=== PATIENT | male | born 1955 | race Two or more races ===

== ENCOUNTER 2024-02-19 10:32 | Outpatient (AMB) | payer MEDICARE, SELFPAY ==
--- NOTE | 2024-02-19 10:47 | HO.NEPHOV_ITS ---
Vital Signs 02/19/24 10:50 Height 5 ft 11 in Weight 236 lb BMI 32.9 BP 122/80 Blood Pressure Location Lt brachial Position Sitting Pulse 54 Pulse Source Pulse Oximeter Pulse Oximetry (%) 97 Oxygen Delivery Method Room Air Intake Visit Reasons: Previous patient/ Confirmed Information Security Specialist Required: No Accompanied by: Self / Same As Patient Allergies No Known Allergies Allergy (Verified 02/19/24 10:53) HPI Comments Details: Brent has history of nephrolithiasis. He was seen in follow-up for his nephrocalcinosis. He had seen Urology in the past. Stone analysis had shown calcium oxalate. His dad had renal calculi. As per the patient, last imaging study did not show any stones but some other medical provider mentioned that he continues to renal calculi about which he is confused. He has lost tremendous amount of weight by lifestyle modifications. 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 He is not on any anticoagulation since he had watchman device placement. He does not have any urinary symptoms, flank pain, dizziness. His blood pressure has been at goal. He feels well. 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 Surgical History History of carpal tunnel release History of shoulder surgery History of knee replacement Family History Paternal Grandmother Heart disease Social History (Updated 02/19/24 @ 10:58 by Maribel Ramires MA) Alcohol intake: never Patient Tobacco Use Status: Never used Tobacco Review of Systems Const All systems reviewed & are unremarkable except as noted in HPI and below Physical Exam Vital Signs: Last Vital Signs Pulse 54 02/19/24 10:50 BP 122/80 02/19/24 10:50 Pulse Ox 97 02/19/24 10:50 Oxygen Delivery Method Room Air 02/19/24 10:50 BMI result Body Mass Index 32.9 Const General: comfortable and no acute distress Orientation/consciousness: patient oriented x3 HEENT Head: Yes normocephalic Mouth: Normal oral and palatal mucosa present Eyes EOM: EOMs intact bilaterally Neck Neck: Yes supple Resp Auscultation: clear to auscultation bilaterally Cardio Jugular venous distension: no JVD Rate: regular rate GI Palpation (GI): Soft to palpation Auscultation: normal bowel sounds General: Yes no CVA tenderness Back/Spine/Pelvis Back: no CVA tenderness Skin General skin exam: no rashes or lesions noted Neuro General: patient oriented x3 and moves all extremities Extrem General: Yes no pedal edema Results Reviewed Nephrology Results: No Data to Display Assessment & Plan Assessment & Plan (1) Kidney stones: Code(s): N20.0 - Calculus of kidney Category: Medical Plan 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 His renal functions has been normal. 24 hour urine by [employer] in April 2023 showed high uric acid levels in the urine but had normal serum uric acid. He is on hydrochlorothiazide 12.5 mg daily. He maintains good hydration. He does not consume excess sodium in the diet. He eats less meat but more fruits and vegetables. I have ordered a renal ultrasound for follow-up. I shall do a 24 hour urine along with serum uric acid, electrolytes and renal function after next visit. All questions answered. Orders: Orders US renal BI Today N20.0 - Calculus of kidney Coding Level of Care Code Est Pt Level 4 (64324) Diagnoses Kidney stones N20.0
[2024-02-19 10:50] VITALS: BP 122/80; PULSE 54; O2SAT 97; BMI 32.9
== END 2024-02-19 11:27 | disposition home or self-care (01) ==
PROVIDERS: PCP Internal Medicine; Visit Provider Internal Medicine Nephrology
DX: N20.0 Calculus of kidney (principal)
CPT/HCPCS: 99214

== ENCOUNTER → 2024-02-19 10:32 | Outpatient (BNVA) | payer MEDICARE, SELFPAY | PROVIDERS: PCP Internal Medicine; Visit Provider Internal Medicine Nephrology | DX: N20.0 Calculus of kidney (principal) | CPT/HCPCS: 99212 ==

== ENCOUNTER 2024-02-26 14:37 | Outpatient (REF) | payer MEDICARE, SELFPAY ==
--- NOTE | ~2024-02-26 | US_ITS ---
EXAMINATION: US RETROPERITONEAL LIMITED (RENAL ONLY) CLINICAL INFORMATION: Renal stone. COMPARISON: None available. TECHNIQUE: Grayscale and Doppler images of the retroperitoneum/kidneys were obtained. FINDINGS: RIGHT KIDNEY: 10.6 x 4.9 x 5.2 cm (SAG x AP x TRV). The kidney is normal in size, contour, and echogenicity. Renal cortical thickness is normal. Right midpole stone measuring up to 0.7 x 0.5 x 0.5 cm. No hydronephrosis. LEFT KIDNEY: 13.1 x 5.6 x 5.5 cm (SAG x AP x TRV). The kidney is normal in size, contour, and echogenicity. Renal cortical thickness is normal. No renal stone. No hydronephrosis. Simple midpole parapelvic cyst measuring up to 1.3 cm. Findings are not clinically significant and no dedicated follow-up imaging is recommended. US/US renal BI IMPRESSION: Right midpole renal stone measuring up to 0.7 cm. No left-sided renal stone. No hydronephrosis. Electronically signed by: Gio Mckeon MD 02/26/2024 08:20 PM EDT
== END 2024-02-26 14:38 | disposition home or self-care (01) ==
LOC: HO.US 14:37
PROVIDERS: Visit Provider Internal Medicine Nephrology
DX: N20.0 Calculus of kidney (principal)
CPT/HCPCS: 76775

== ENCOUNTER 2024-05-27 10:21 | Outpatient (AMB) | payer OTHER, SELFPAY ==
--- OUTSIDE RECORDS SUMMARY | 2024-05-27 10:57 | XMS_ITS | Clinical Summary ---
Author Organization Unknown Care Team Providers Care Technology Applications Engineer Name Role Phone ABILIO CASTRO, PAN Unavailable Unavailable KO ([facility]) [facility] - PT, CASEY Unavailable U crystal GARCIA ([facility]) [facility] - PT, HIRO Unavailable Unavailable Payers Payer Name Policy Type Policy Number Effective Date Expira tion Date [employer] MEDICARE [employer]AGE [id number] MEDICARE - NGS CINDY/IDRIS - PDGM [id number] Problems Condition Name Condition Details Condition Category Status Onset Date Resolution Date Last Treatment Date Treating Clinician Comments AFTERCARE FOLLOWING JOINT REPLACEMENT SURGERY Active 11-27 00:00: 00 PRESENCE OF RIGHT ARTIFICIAL KNEE JOINT Active 11-27 00:00: 00 PAROXYSMAL ATRIAL FIBRILLATION Active 11-27 00:00: 00 ESSENTIAL (PRIMARY) HYPERTENSION Active 11-27 00:00: 00 HYPERLIPIDEM IA, UNSPECIFIED Active 11-27 00:00: 00 MILD INTERMITTENT ASTHMA, UNCOMPLICATE D Active 11-27 00:00: 00 OBSTRUCTIVE SLEEP APNEA (ADULT) (PEDIATRIC) Active 11-27 00:00: 00 IRON DEFICIENCY ANEMIA, UNSPECIFIED Active 11-27 00:00: 00 RESTLESS LEGS SYNDROME Active 11-27 00:00: 00 CALCULUS OF KIDNEY Active 11-27 00:00: 00 HYPOTHYROIDI SM, UNSPECIFIED Active 11-27 00:00: 00 OBESITY, UNSPECIFIED Active 11-27 00:00: 00 QUALITY ANALYST (CURRENT) USE OF NON-STEROIDA L NON-INFLAM (NSAID) Active 11-27 00:00: 00 QUALITY ANALYST (CURRENT) USE OF ANTICOAGULAN TS Active 11-27 00:00: 00 OTHER QUALITY ANALYST (CURRENT) DRUG THERAPY Active 11-27 00:00: 00 PERSONAL HISTORY OF URINARY (TRACT) INFECTIONS Active 11-27 00:00: 00 PRESENCE OF LEFT ARTIFICIAL KNEE JOINT Active 11-27 00:00: 00 BODY MASS INDEX [BMI] 33.0-33.9, ADULT Active 11-27 00:00: 00 Allergies, Adverse Reactions, Alerts Allergy Name Allergy Type Status Severity Reaction(s) Onset Date Inactive Date Treating Clinician Comments NKA Propensity to adverse reactions Active 2022-11 22:48:0 6 Medications Ordered Medication Name Filled Medication Name Start Date Stop Date Current Medication? Ordering Clinician Indication Dosage Frequency Signature (SIG) Comments Components rosuvastati n 10 mg tablet 11-25 00:00: 00 11-27 00:00 :00 No [id number] Per instruc tions Per instructio ns (route: oral) Med Classific ation: Cardiovas cular Therapy Agents celecoxib 200 mg capsule 11-27 00:00: 00 Yes [id number] 1 capsule 2 TIMES DAILY 1 capsule 2 TIMES DAILY (route: oral) Med Classific ation: Analgesic , Anti-infl ammatory or Antipyret ic rosuvastati n 10 mg tablet 11-27 00:00: 00 Yes [id number] 1 tablet DAILY 1 tablet DAILY (route: oral) Med Classific ation: Cardiovas cular Therapy Agents acetaminoph en 325 mg capsule 11-27 00:00: 00 Yes [id number] 2 capsule EVERY 6 HOURS 2 capsule EVERY 6 HOURS (route: oral) Med Classific ation: Analgesic , Anti-infl ammatory or Antipyret ic albuterol sulfate HFA 90 mcg/actuati on aerosol inhaler 11-27 00:00: 00 Yes [id number] 1 puff EVERY 6 HOURS 1 puff EVERY 6 HOURS (route: inhalation ) Med Classific ation: Respirato ry Therapy Agents diltiazem CD 240 mg capsule,ext ended release 24 hr 11-27 00:00: 00 Yes [id number] 1 capsule DAILY 1 capsule DAILY (route: oral) Med Classific ation: Cardiovas cular Therapy Agents docusate sodium 100 mg tablet 11-27 00:00: 00 Yes [id number] 1 tablet 2 TIMES DAILY 1 tablet 2 TIMES DAILY (route: oral) Med Classific ation: Gastroint estinal Therapy Agents Eliquis 2.5 mg tablet 11-27 00:00: 00 Yes [id number] 1 tablet 2 TIMES DAILY 1 tablet 2 TIMES DAILY (route: oral) Med Classific ation: Hematolog ical Agents fluticasone 100 mcg-salmete rol 50 mcg/dose blistr powdr for inhalation 11-27 00:00: 00 Yes [id number] 1 inhalat ion 2 TIMES DAILY 1 inhalation 2 TIMES DAILY (route: inhalation ) Med Classific ation: Respirato ry Therapy Agents hydromorpho ne 2 mg tablet 11-27 00:00: 00 Yes [id number] 1 tablet EVERY 3 HOURS 1 tablet EVERY 3 HOURS (route: oral) Med Classific ation: Analgesic , Anti-infl ammatory or Antipyret ic levothyroxi ne 50 mcg tablet 11-27 00:00: 00 Yes [id number] 1 tablet DAILY 1 tablet DAILY (route: oral) Med Classific ation: Endocrine propafenone ER 225 mg capsule,ext ended release 12 hr 11-27 00:00: 00 Yes [id number] 1 capsule EVERY 12 HOURS 1 capsule EVERY 12 HOURS (route: oral) Med Classific ation: Cardiovas cular Therapy Agents tramadol 50 mg tablet 11-27 00:00: 00 Yes [id number] 1-2 tablet EVERY 6 HOURS 1-2 tablet EVERY 6 HOURS (route: oral) Med Classific ation: Analgesic , Anti-infl ammatory or Antipyret ic Immunizations Ordered Immunization Name Filled Immunization Name Date Status Comments Refusal Reason COVID-19, COVID-19 2022-02-16 00:00:00 Vital Signs Vital Name Observation Time Observation Value Commen ts Temperature 2022-12-04 13:01:00.000 97.8 [degF] Temperature 2022-12-02 11:08:00.000 98.3 [degF] Temperature 2022-11-29 10:06:00.000 97.1 [degF] Temperature 2022-11-27 11:42:00.000 96.8 [degF] BMI (%) 2022-11-27 11:42:00.000 33 kg/m2 Height 2022-11-27 11:42:00.000 71 [in_us] Pulse 2022-12-04 13:01:00.000 76 /min Pulse 2022-12-02 11:08:00.000 79 /min Pulse 2022-11-29 10:06:00.000 83 /min Pulse 2022-11-27 11:42:00.000 70 /min Respirations 2022-12-04 13:01:00.000 18 /min Respirations 2022-12-02 11:08:00.000 18 /min Respirations 2022-11-29 10:06:00.000 16 /min Respirations 2022-11-27 11:42:00.000 16 /min Weight (lbs) 2022-11-27 11:42:00.000 240 [lb_av] Systolic Blood Pressure 2022-12-04 13:01:00.000 122 mm [Hg] Systolic Blood Pressure 2022-12-02 11:08:00.000 122 mm [Hg] Systolic Blood Pressure 2022-11-29 10:06:00.000 120 mm [Hg] Systolic Blood Pressure 2022-11-27 11:42:00.000 127 mm [Hg] Diastolic Blood Pressure 2022-12-04 13:01:00.000 72 mm [Hg] Diastolic Blood Pressure 2022-12-02 11:08:00.000 72 mm [Hg] Diastolic Blood Pressure 2022-11-29 10:06:00.000 77 mm [Hg] Diastolic Blood Pressure 2022-11-27 11:42:00.000 68 mm [Hg] Plan of Treatment Planned Activity Planned Date Details Comments Future Scheduled Test PHYSICAL T HERAPIST TO EVALUATE PATIENT SECONDARY TO FUNCTIONAL DEFICITS/SAFETY CONCERNS. [code = PHYSICAL THERAPIST TO EVALUATE PATIENT SECONDARY TO FUNCTIONAL DEFICITS/SAFETY CONCERNS.] Future Scheduled Test SUMMARY OF THERAPY EVAL/ASSESSMENT FINDINGS AND REASON(S) SKILLS OF A THERAPIST ARE INDICATED: PATIENT IS A 67-YEAR-OLD MALE STATUS POST RIGHT TOTAL KNEE REPLACEMENT BY DR ZHONG. PAST MEDICAL HISTORY SIGNIFICANT FOR ATRIAL FIBRILLATION, HYPERTENSION, HYPERLIPIDEMIA, OSTEOARTHRITIS AND LEFT TOTAL KNEE REPLACEMENT. PRIOR LEVEL OF MOBILITY WAS INDEPENDENT. PATIENT IS ALERT AND ORIENTED TIMES FOUR. PATIENT STANDS 5 FT 11 IN TALL WITH A WEIGHT OF 240 LB. PATIENT COMPLAINS OF RIGHT KNEE PAIN REACHING SEVERE LEVELS CURRENTLY USING TRAMADOL. PATIENT REPORTS BOWEL AND BLADDER BLADDER ARE INTACT. PATIENT IS CURRENTLY SPONGE BATH LEVEL. LIVES WITH ABLE CAREGIVER DAUGHTER. RESTING BLOOD PRESSURE 127 / 68 HEART RATE 70 RESPIRATORY RATE 16 TEMPERATURE 96.8. RIGHT KNEE INCISION COVERED BY NON-REMOVABLE DRESSING INTACT NO SIGNS OR SYMPTOMS OF INFECTION. RIGHT LOWER EXTREMITY EDEMA WITHIN NORMAL LIMITS FOR POST-OP DATE NO SIGNS OR SYMPTOMS OF DVT. ACTIVIE RANGE OF MOTION NEGATIVE 8? EXTENSION TO 80? FLEXION WITH EFFORT. PATIENT UNABLE TO STRAIGHT LEG RAISE AT THIS TIME ASSISTANCE FOR POSITIONING. PATIENT REQUIRES ASSISTANCE TIMES ONE FOR BED MOBILITY TRANSFERS AMBULATION WITH FRONT-WHEEL WALKER. PERFORMED AND INSTRUCTED IN SELF-RANGE OF MOTION PROGRAM FOR FLEXION AND EXTENSION, EDEMA AND PAIN MANAGEMENT, TRANSFER BED MOBILITY TRAINING. WILL BENEFIT FROM SHORT-TERM HOME PHYSICAL THERAPY TO ADDRESS KNEE RANGE OF MOTION, MUSCLE EDUCATION STRENGTHENING, INCISIONAL CARE, PAIN AND EDEMA MANAGEMENT. MEDICATION RECONCILIATION COMPLETED WITH DISCHARGE PAPERWORK. PATIENT AGREES WITH PLAN OF CARE. [code = SUMMARY OF THERAPY EVAL/ASSESSMENT FINDINGS AND REASON(S) SKILLS OF A THERAPIST ARE INDICATED: PATIENT IS A 67-YEAR-OLD MALE STATUS POST RIGHT TOTAL KNEE REPLACEMENT BY DR ZHONG. PAST MEDICAL HISTORY SIGNIFICANT FOR ATRIAL FIBRILLATION, HYPERTENSION, HYPERLIPIDEMIA, OSTEOARTHRITIS AND LEFT TOTAL KNEE REPLACEMENT. PRIOR LEVEL OF MOBILITY WAS INDEPENDENT. PATIENT IS ALERT AND ORIENTED TIMES FOUR. PATIENT STANDS 5 FT 11 IN TALL WITH A WEIGHT OF 240 LB. PATIENT COMPLAINS OF RIGHT KNEE PAIN REACHING SEVERE LEVELS CURRENTLY USING TRAMADOL. PATIENT REPORTS BOWEL AND BLADDER BLADDER ARE INTACT. PATIENT IS CURRENTLY SPONGE BATH LEVEL. LIVES WITH ABLE CAREGIVER DAUGHTER. RESTING BLOOD PRESSURE 127 / 68 HEART RATE 70 RESPIRATORY RATE 16 TEMPERATURE 96.8. RIGHT KNEE INCISION COVERED BY NON-REMOVABLE DRESSING INTACT NO SIGNS OR SYMPTOMS OF INFECTION. RIGHT LOWER EXTREMITY EDEMA WITHIN NORMAL LIMITS FOR POST-OP DATE NO SIGNS OR SYMPTOMS OF DVT. ACTIVIE RANGE OF MOTION NEGATIVE 8? EXTENSION TO 80? FLEXION WITH EFFORT. PATIENT UNABLE TO STRAIGHT LEG RAISE AT THIS TIME ASSISTANCE FOR POSITIONING. PATIENT REQUIRES ASSISTANCE TIMES ONE FOR BED MOBILITY TRANSFERS AMBULATION WITH FRONT-WHEEL WALKER. PERFORMED AND INSTRUCTED IN SELF-RANGE OF MOTION PROGRAM FOR FLEXION AND EXTENSION, EDEMA AND PAIN MANAGEMENT, TRANSFER BED MOBILITY TRAINING. WILL BENEFIT FROM SHORT-TERM HOME PHYSICAL THERAPY TO ADDRESS KNEE RANGE OF MOTION, MUSCLE EDUCATION STRENGTHENING, INCISIONAL CARE, PAIN AND EDEMA MANAGEMENT. MEDICATION RECONCILIATION COMPLETED WITH DISCHARGE PAPERWORK. PATIENT AGREES WITH PLAN OF CARE.] Future Scheduled Test PHYSICAL T HERAPY TO ESTABLISH /UPGRADE/DOWNGRADE THERAPEUTIC EXERCISE PROGRAM AND INSTRUCT PATIENT/CAREGIVER ON EXERCISE PRECAUTIONS WITH WRITTEN HOME PROGRAM. MAY INCLUDE PROM, AAROM, AROM, RROM APPROPRIATE TO IMPROVE FUNCTIONAL STRENGTH AND RANGE OF MOTION. [code = PHYSICAL THERAPY TO ESTABLISH /UPGRADE/DOWNGRADE THERAPEUTIC EXERCISE PROGRAM AND INSTRUCT PATIENT/CAREGIVER ON EXERCISE PRECAUTIONS WITH WRITTEN HOME PROGRAM. MAY INCLUDE PROM, AAROM, AROM, RROM APPROPRIATE TO IMPROVE FUNCTIONAL STRENGTH AND RANGE OF MOTION.] Future Scheduled Test PHYSICAL T HERAPY TO INSTRUCT PATIENT/CAREGIVER ON BED MOBILITY TECHNIQUES TO IMPROVE PATIENT MOBILITY AND POSITIONING TECHNIQUES IN ORDER TO INCREASE PATIENTS COMFORT AND DECREASE RISK OF SKIN BREAKDOWN. [code = PHYSICAL THERAPY TO INSTRUCT PATIENT/CAREGIVER ON BED MOBILITY TECHNIQUES TO IMPROVE PATIENT MOBILITY AND POSITIONING TECHNIQUES IN ORDER TO INCREASE PATIENTS COMFORT AND DECREASE RISK OF SKIN BREAKDOWN.] Future Scheduled Test PHYSICAL T HERAPY TO INSTRUCT PATIENT/CAREGIVER ON SAFE TRANSFER TECHNIQUES USING PROPER BODY MECHANICS AND EQUIPMENT. [code = PHYSICAL THERAPY TO INSTRUCT PATIENT/CAREGIVER ON SAFE TRANSFER TECHNIQUES USING PROPER BODY MECHANICS AND EQUIPMENT.] Future Scheduled Test PHYSICAL T HERAPY TO INSTRUCT PATIENT/CAREGIVER ON GAIT TRAINING TECHNIQUES USING APPROPRIATE ASSISTIVE DEVICE, PROPER BODY MECHANICS TO IMPROVE MOBILITY, AND PREVENT INJURY OF PATIENT AND/OR CAREGIVER. [code = PHYSICAL THERAPY TO INSTRUCT PATIENT/CAREGIVER ON GAIT TRAINING TECHNIQUES USING APPROPRIATE ASSISTIVE DEVICE, PROPER BODY MECHANICS TO IMPROVE MOBILITY, AND PREVENT INJURY OF PATIENT AND/OR CAREGIVER.] Future Scheduled Test PHYSICAL T HERAPY TO ASSESS AND RECOMMEND HOME SAFETY ADAPTATIONS AND EDUCATE PATIENT /CAREGIVER ON FALL PREVENTION STRATEGIES. [code = PHYSICAL THERAPY TO ASSESS AND RECOMMEND HOME SAFETY ADAPTATIONS AND EDUCATE PATIENT /CAREGIVER ON FALL PREVENTION STRATEGIES.] Future Scheduled Test PHYSICAL T HERAPY TO PROVIDE MANUAL THERAPY TECHNIQUES INCLUDING (SPECIFY JOINT MOBILIZATIONS/MFR/SOFT TISSUE MOBILIZATION) TO RIGHT KNEE TO ASSIST WITH PAIN CONTROL AND/OR JOINT MOBILITY. [code = PHYSICAL THERAPY TO PROVIDE MANUAL THERAPY TECHNIQUES INCLUDING (SPECIFY JOINT MOBILIZATIONS/MFR/SOFT TISSUE MOBILIZATION) TO RIGHT KNEE TO ASSIST WITH PAIN CONTROL AND/OR JOINT MOBILITY.] Future Scheduled Test PHYSICAL T HERAPY TO PROVIDE DRESSING ASSESSMENT [code = PHYSICAL THERAPY TO PROVIDE DRESSING ASSESSMENT ] Future Scheduled Test PHYSICAL T HERAPY FOR OBSERVATION AND ASSESSMENT OF PAIN, EFFECTIVENESS OF PAIN MANAGEMENT REGIMEN AND SKILLED TEACHING RELATED TO PAIN MANAGEMENT. THERAPIST TO REPORT INCREASED PAIN LEVEL TO PHYSICIAN FOR PROMPT INTERVENTION. [code = PHYSICAL THERAPY FOR OBSERVATION AND ASSESSMENT OF PAIN, EFFECTIVENESS OF PAIN MANAGEMENT REGIMEN AND SKILLED TEACHING RELATED TO PAIN MANAGEMENT. THERAPIST TO REPORT INCREASED PAIN LEVEL TO PHYSICIAN FOR PROMPT INTERVENTION.] Goal 2022-12-04 Patient Goal - ATTEND OUTPAT IENT THERAPY Goal Provider Goal - PHYSICAL THERAPY EVALUATION TO BE COMPLETED WITH RECOMMENDATIONS AND/OR WRITTEN TREATMENT PLAN OF CARE ESTABLISHED FOR THE PHYSICIANS SIGNATURE Goal Provider Goal - Goal Provider Goal - PATIENT/CAREGIVER WILL PERFORM THERAPEUTIC EXERCISE/S AND DEMONSTRATE PARTICIPATION IN A HOME PROGRAM TO IMPROVE FUNCTION OF RLE. Goal Provider Goal - PATIENT/CAREGIVER WILL DEMONSTRATE IMPROVED BED MOBILITY TECHNIQUES TO IMPROVE FUNCTION OF BED MOBILITY. Goal Provider Goal - PATIENT/CAREGIVER WILL DEMONSTRATE SAFE TRANSFERS USING APPROPRIATE ASSISTIVE DEVICE BODY MECHANICS AND EQUIPMENT TO IMPROVE FUNCTION OF TRANSFERS Goal Provider Goal - PATIENT/CAREGIVER WILL DEMONSTRATE IMPROVED GAIT TECHNIQUES TO MINIMIZE RISK OF INJURY AND INCREASE FUNCTION OF AMBULATION IN HOME. Goal Provider Goal - PATIENT/CAREGIVER WILL DEMONSTRATE/VERBALIZE UNDERSTANDING OF RECOMMENDATIONS TO INCREASE SAFETY IN THE HOME AND FALL PREVENTION TO IMPROVE FUNCTION OF MOBILITY IN HOME. Goal Provider Goal - PHYSICAL THERAPIST WILL PERFORM MANUAL THERAPY TECHNIQUES TO IMPROVE THE FUNCTION OF RT KNEE Goal Provider Goal - PATIENT/CAREGIVER WILL BE INSTRUCTED IN S/S OF INFECTION. INCISION WILL SHOW SIGNS OF HEALING WITHOUT INFECTION. DAV/SUTURES REMOVED IF ORDERED. Goal Provider Goal - INCREASED PAIN OR INEFFECTIVE PAIN CONTROL MEASURES WILL BE IDENTIFIED AND PROMPTLY REPORTED TO THE PHYSICIAN. PATIENT/CAREGIVER WILL DEMONSTRATE EFFECTIVE PAIN MANAGEMENT TO IMPROVE FUNCTION OF KNEE ROM. Reason for Visit INDEPENDENT WITH USE OF ASSISTIVE DEVICE Encounters Start Date/Time End Date/Time Encounter Type Admission Type Attending [facility] Care Department Encounter ID Discharge Date Discharge Status Discharge Condition Discharge Reason Percent Goals Met 2022-11-27 00:00:00 2022-12-04 00:00:00 Outpatient NEW ADMISSION JOSE ([facility])HIRO [facility] [id number] 2022-12-04 00:00:00 DISCHARGE TO HOME OR SELF CARE INDEPENDEN T WITH USE OF ASSISTIVE DEVICE PATIENT ELECTS OUTPATIENT THERAPY ( ONLY) 83.33
--- NOTE | 2024-05-27 11:12 | HO.NEPHOV ---
Vital Signs 05/27/24 11:14 Height 5 ft 11 in Weight 242 lb BMI 33.7 BP 120/62 Blood Pressure Location Lt brachial Position Sitting Pulse 65 Pulse Source Pulse Oximeter Pulse Oximetry (%) 97 Oxygen Delivery Method Room Air Intake Visit Reasons: 3 mon follow up-[facility] [employer] Operator Required: No Accompanied by: Self / Same As Patient Allergies No Known Allergies Allergy (Verified 05/27/24 11:14) HPI Comments Details: Brent has history of nephrolithiasis. He was seen in follow-up for his nephrocalcinosis. He had seen Urology in the past. Stone analysis had shown calcium oxalate. His dad had renal calculi. As per the patient, last imaging study did not show any stones but some other medical provider mentioned that he continues to renal calculi about which he is confused. He has lost tremendous amount of weight by lifestyle modifications. 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 He is not on any anticoagulation since he had watchman device placement. He does not have any urinary symptoms, flank pain, dizziness. His blood pressure has been at goal. He feels well. 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 Surgical History History of carpal tunnel release History of shoulder surgery History of knee replacement Family History Paternal Grandmother Heart disease Social History Alcohol intake: never Patient Tobacco Use Status: Never used Tobacco Review of Systems Const All systems reviewed & are unremarkable except as noted in HPI and below Physical Exam Vital Signs: Last Vital Signs Pulse 65 05/27/24 11:14 BP 120/62 05/27/24 11:14 Pulse Ox 97 05/27/24 11:14 Oxygen Delivery Method Room Air 05/27/24 11:14 BMI result Body Mass Index 33.7 Const General: comfortable and no acute distress Orientation/consciousness: patient oriented x3 HEENT Head: Yes normocephalic Mouth: Normal oral and palatal mucosa present Eyes EOM: EOMs intact bilaterally Neck Neck: Yes supple Resp Auscultation: clear to auscultation bilaterally Cardio Jugular venous distension: no JVD Rate: regular rate GI Palpation (GI): Soft to palpation Auscultation: normal bowel sounds General: Yes no CVA tenderness Back/Spine/Pelvis Back: no CVA tenderness Skin General skin exam: no rashes or lesions noted Neuro General: patient oriented x3 and moves all extremities Extrem General: Yes no pedal edema Results Reviewed Nephrology Results: Renal US 02/26/24 Assessment & Plan Assessment & Plan (1) Kidney stones: Code(s): N20.0 - Calculus of kidney Category: Medical Plan 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 His renal functions has been normal. 24 hour urine by [facility] in April 2023 showed high uric acid levels in the urine but had normal serum uric acid. He is on hydrochlorothiazide 12.5 mg daily. He maintains good hydration. He does not consume excess sodium in the diet. He eats less meat but more fruits and vegetables. His last renal ultrasound showed a single stone 0.7 cm right kidney . I shall do a 24 hour urine along with serum uric acid, electrolytes and renal function with time. I have ordered lab work today. All questions answered. Orders: Orders Creatinine Today N20.0 - Calculus of kidney Blood Urea Nitrogen Today N20.0 - Calculus of kidney Electrolytes Today N20.0 - Calculus of kidney Calcium Today N20.0 - Calculus of kidney Coding Level of Care Code Est Pt Level 4 (08279) Diagnoses Kidney stones N20.0
[2024-05-27 11:14] VITALS: BP 120/62; PULSE 65; O2SAT 97; BMI 33.7
== END 2024-05-27 11:29 | disposition home or self-care (01) ==
PROVIDERS: PCP Internal Medicine; Visit Provider Internal Medicine Nephrology
DX: N20.0 Calculus of kidney (principal)
CPT/HCPCS: 99214

== ENCOUNTER 2024-11-18 13:11 | Outpatient (REF) | payer OTHER, SELFPAY ==
--- OUTSIDE RECORDS SUMMARY | 2024-11-18 13:18 | XMS_ITS | Data Portability ---
Author Organization [place] - [facility], Allergy Address [address] [place] [phone] Care Team Providers Care Direct Casting Operator Name Role Phone ABILIO PERLA Primary Care Provider Assessment Encounter Date Assessment Date Assessment LastModified by Organization Details LastModified Time 07/07/2024 07/07/2024 Patient should consider pursuing cross hearing aid technology to assist with his right side profound sensorineural hearing loss and left side normal sloping to moderate severe. Patient will investigate his benefit through his insurance, possible [employer] benefit. Noise protection is advised. No evidence of lesions of the nasal, oropharynx region to suggest referred otalgia. More likely TMJ given the crepitus and tenderness surrounding his jaw joint on the left side dplosky Not available 07/07/2024 11:19:37 Plan of Treatment Reminders Order Date Submit Date Provider Last Modified By Organization Details Last Modified Time Details Appointments None record ed. Lab None record ed. Referral None record ed. Procedures None record ed. Surgeries None record ed. Imaging None record ed. Medication Orders None record ed. Patient TargetsNo targets recorded. Patient InstructionsNo instructions recorded. Reason for Referral None Reported. Results Created Date Observation Date Name Description Value Unit Range Abnormal Flag Note LastModifiedBy Organization Detail LastModifiedTime 07/07/19 25 audio gram No observ ation record ed. BARCODE Not Available 2024 11:40:41 Result Notes None recorded. 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, right ear; Note: Date Diagnosed : 01/12/2021 3:08 PM (H91.21) Not Available [facility] 4 02:57:37 Neck pain 22111215 Active 2020 Cervicalg ia; Note: Date Diagnosed : 01/19/2021 5:56 PM (M54.2) Not Available [facility] 4 02:57:36 Sensorine ural hearing loss of bilateral ears 010440369 Active 2024 TAMMY THORNTON [address] [facility],[place] [address], [place], [phone] , [facility] - [facility] 5 10:48:48 Impacted cerumen in left ear 49760012113 20086 Active 2024 SERA ERNST MD [address] [place] [address],[place] [address], [facility] [place], [phone] , [facility] - [facility] 5 11:17:29 Otalgia of left ear 0352522694 Active 2024 SERA ERNST MD [address] [place] [address],[place] [address], [facility] [place], [phone] , [facility] - [facility] 5 11:17:36 Problem Notes None recorded. Procedures Surgical History Date Name Laterality Status Provider Name and Address Organization Details Recorded Time 07/07/2024 Comp Audio with Tymps - 89880 & 13634 completed MIRELLA GARCIA, TAMMY [address] [facility],[place] [address], [place], [phone], [facility] [place] 07/07/2024 10:48:40 07/07/2024 Wax_DP completed SERA ERNST MD [address] [place] [address],[address], [phone], [facility] 07/07/2024 11:17:11 Imaging Results None recorded. Procedure Notes None recorded. Medical Equipment None Reported. Medications Name Sig Start Date Stop Date Status Note LastModified by Organization Details LastModified Time celecoxib 200 mg capsule TAKE 1-2 CAPS BY MOUTH DAILY NEEDED FOR PAIN active Not Available Not Available No t Available Nasal [place] (oxymetazo line) 0.05 % 2020 active Medicatio n ID: [id number] Br and Name: Nasal [place] (oxymetaz oline) Se nd Method: E-Prescri bed Subs Allowed: subs OK Specia l Instructi on: PLACE 2 SPRAYS BY NASAL ROUTE 2 TIMES DAILY FOR 3 DAYS. Med icationGe nericName : Nasal [place] (oxymetaz oline) Not Available Not Available Not Available prednisone 10 mg tablet by mouth 2020 active Medicatio n ID: [id number] Pr escribed By Name: Hien Mathews MD Brand Name: prednison e Send Method: E-Prescri bed Subs Allowed: subs OK Specia l Instructi on: Take 6 tabs PO QD X 9 days, then 5 tabs PO QD day 10, 4 tabs day 11, 3 tabs day 12, 2 tabs day 13 and 1 tab day 14 Medica tionGener icName: prednison e Not Available Not Available Not Available diltiazem CD 240 mg capsule,ex tended release 24 hr TAKE 1 CAPSULE BY MOUTH EVERY DAY active Not Available Not Available No t Available cyanocobal mcpherson (vit B-12) 1,000 mcg tablet 2020 active Medicatio n ID: [id number] Br and Name: cyanocoba elizabeth (vitamin B-12) Sen d Method: E-Prescri bed Subs Allowed: subs OK Specia l Instructi on: TAKE 1 TABLET BY MOUTH EVERY DAY Medic ationGene ricName: cyanocoba elizabeth (vitamin B-12) Not Available Not Available Not Available clopidogre l 75 mg tablet TAKE 1 TABLET BY MOUTH EVERY DAY active Not Available Not Available No t Available terbinafin e HCl 250 mg tablet TAKE 1 TABLET BY MOUTH EVERY DAY active Not Available Not Available No t Available levothyrox ine 50 mcg tablet TAKE 1 TABLET BY MOUTH EVERY DAY active Not Available Not Available No t Available fluticason e propionate 50 mcg/actuat ion nasal spray,susp ension 2020 active Medicatio n ID: [id number] Br and Name: fluticaso ne propionat e Send Method: E-Prescri bed Subs Allowed: subs OK Specia l Instructi on: INSTILL 2 SPRAYS BY NASAL ROUTE EVERY DAY Medic ationGene ricName: fluticaso ne propionat e Not Available Not Available Not Available mometasone 0.1 % topical cream APPLY TWICE A DAY FOR 10 DAYS IN THE SCROTAL AREA active Not Available Not Available No t Available Ventolin HFA 90 mcg/actuat ion aerosol inhaler PLEASE SEE ATTACHED FOR DETAILED DIRECTION S active Not Available Not Available No t Available rosuvastat in 10 mg tablet TAKE 1 TABLET BY MOUTH EVERY DAY active Not Available Not Available No t Available propafenon e ER 225 mg capsule,ex tended release 12 hr TAKE 1 CAPSULE BY MOUTH TWICE A DAY active Not Available Not Available No t Available hydrochlor othiazide 12.5 mg tablet TAKE 1 TABLET BY MOUTH 1 TIME EACH DAY. active Not Available Not Available No t Available Eliquis 5 mg tablet TAKE 1 TABLET BY MOUTH TWICE A DAY active Not Available Not Available No t Available Vitals Date Recorded Body height Body mass index (BMI) Body weight Provider Name and Address Organization Details Last Updated DateTime 07/07/2024 162.56 cm 41.7 kg/m2 279197.95 g Sheila Hoover [place] - [facility] 07/07/2024 10:56:40 Social History None recorded. Functional Status None recorded. Mental Status None recorded. Family History Nothing Reported. Medical History No medical history recorded. Past Encounters Encounter ID Performer Location Encounter Start Date Encounter Closed Date Diagnosis/Indication Diagnosis SNOMED-CT Code Diagnosis ICD10 Code Diagnosis Note [id number] SERA ERNST MD [facility] [address] [phone] 07/07/2024 10:23:30 07/07/2024 11:17:40 Sensorineural hearing loss of bilateral ears 614270471 H90.3 Audiologic al evaluation results: 07/07/2024 Right ear: Severe sloping to profound sensorineu ral hearing loss with no measurable word recognitio n. Left ear: Normal sloping to moderately severe sensorineu ral hearing loss with excellent word recognitio n. Tympanomet ry: Right Ear:Type A Left Ear:Type A Impacted c erumen in left ear [id number] 315100 H61.22 Ears were meticulous ly cleaned LEFT today with fine pics, curettes and/or suction. Patient is encouraged to avoid Q-tips in their ears relative to packing the wax in tighter. They may use the corner of their bath towel to gently clean the nooks and crannies of the external ears as needed. Yearly visits or as needed are recommende d. Otalgia of left ear 1010 657081 H92.02 The patient complains of intermitte nt left-sided periauricu lar discomfort . Physical exam reveals no identifiab le source of these symptoms involving the auricle, external auditory canal, or tympanic membrane. Audiometri c testing and tympanomet ry are similarly unrevealin g. Furthermor e, examinatio n was positive for crepitus and tenderness of the left jaw joint and mark-TMJ musculatur e. The patient's periauricu lar discomfort is most likely consistent with intermitte nt inflammati on of the jaw joint or spasm of the surroundin g musculatur e. This is likely exacerbate d by dental clenching and grinding. I recommende d the patient use light massage, warm compresses and anti-infla mmatories for symptomati c management . Stressed chewing evenly on both sides of the mouth to keep from overworkin g the jaw joint. Use soft food diet as needed. Jaw Joint Program informatio n sheet was shared. If this treatment plan is ineffectiv e, recommend follow up with their dentist. Referral to physical therapist who specialize s in TMJ disorders could also be considered . Health Concerns Section Related Observation LastModified by Organization Detai ls LastModified Time None Recorded Concern Status LastModified by Organization Details LastModified Time None Recorded Advance Directives Directive None Recorded Payers Insurance Date Sequence Insurance Name Policy Number Policy Rees Covered Member ID Rees Member ID Guarantor Name 07/07/2024 2 [place] [facility] Brent Ramires [id number] Brent Ramires 07/07/2024 1 [facility] (MEDICARE REPLACEMENT/A DVANTAGE - PPO) Brent Ramires [id number] Brent Ramires Notes Date Note Type Note Provider Name and Address Organization Details Recorded Time 07/07/2024 text/html Left otalgiaonse t about Apr 2024sharp pain below left earno otorrheatried hearing aids years ago but does not use them now PV 2020 [employer], Right sudden SNHL profound, MRI normal. no response to ITI SERA ERNST MD [address] [place] [address], [place], [phone], [place] - [facility] 07/07/2024 11:20:20
--- OUTSIDE RECORDS SUMMARY | 2024-11-18 13:18 | XMS_ITS | Clinical Summary ---
Author Organization [address] [place] [address] [place] [phone] Phone Care Team Providers Care Tray Filler Name Role Phone Caleb Fuentes MD Primary Care Provider [phone] Allergies No known active allergies Medications albuterol HFA (PROAIR HFA ; PROVENTIL HFA ; VENTOLIN HFA) 90 mcg/actuation inhaler Inhale 2 Puffs into the lungs every 6 hours as needed for Cough, Wheezing or Shortness of Breath for up to 30 days. 02/11/20 24 Active terbinafine (LamISIL) 250 mg tablet TAKE 1 TABLET BY MOUTH EVERY DAY 09/23/19 24 Active aspirin 81 mg EC tablet Take 1 Tablet by mouth. Active mometasone (ELOCON) 0.1 % cream Apply twice a day for 10 days in the scrotal area 07/15/19 24 Active hydroCHLOROthiazi de 12.5 mg tablet Take 1 Tablet by mouth daily. Active celecoxib (CeleBREX) 200 mg capsule TAKE 1 CAPSULE BY MOUTH TWICE A DAY 09/01/19 23 Active fluticasone propionate (FLONASE) 50 mcg/actuation nasal spray SPRAY 2 SPRAYS BY NASAL ROUTE EVERY DAY 08/18/19 23 Active medical supply, miscellaneous (MISCELLANEOUS MEDICAL SUPPLY MISC) Inhale into the lungs. apria Active levothyroxine (SYNTHROID, LEVOTHROID) 50 mcg tablet TAKE 1 TABLET BY MOUTH EVERY DAY 90 tablet 1 06/09/19 25 Active dilTIAZem CD (CARDIZEM CD) 240 mg 24 hr capsuleIndication s:Paroxysmal atrial fibrillation (CMS/HCC V24, CMS/HCC V28) Take 1 capsule (240 mg total) by mouth 1 (one) time each day. 90 capsule 2 10/15/19 25 Active propafenone SR (RYTHMOL SR) 225 mg 12 hr capsuleIndication s:Paroxysmal atrial fibrillation (CMS/HCC V24, CMS/HCC V28) Take 1 capsule (225 mg total) by mouth 2 (two) times a day. 180 capsule 2 10/15/19 25 Active rosuvastatin (CRESTOR) 10 mg tablet TAKE 1 TABLET BY MOUTH 1 TIME EACH DAY. 90 tablet 3 11/09/19 25 Active rosuvastatin (CRESTOR) 10 mg tablet Take 1 tablet (10 mg total) by mouth 1 (one) time each day. 30 tablet 2 08/11/19 25 025 Discontinued Active Problems Problem Noted Date Diagnosed Date Dyspnea on exertion 03/21/2022 Dizziness 03/28/2021 Varicose vein of leg 01/13/2018 Overview (02/25/2024): Varicose veins Anemia 03/26/2017 Asthma 03/26/2017 Atrial fibrillation (CMS/HCC V24, CMS/HCC V28) 1 05/26/2016 Overview (02/25/2024): s/p cardiac ablation. Assessment & Plan (05/09/2024 8:55 PM EST): Assessment & Plan (05/09/2024 8:55 PM EST): Orders: ECG 12 lead Essential hypertension 03/26/2017 Assessment & Plan (05/09/2024 8:55 PM EST): GERD (gastroesophageal reflux disease) 7 Hyperlipidemia 03/26/2017 Hypothyroidism 03/26/2017 ARGENIS (obstructive sleep apnea) 03/26/2017 Overview (02/25/2024): CPAP SMS Home sleep test 10/04/2021. Weight 265; BMI 37.AHI 65. 415 obstructive apneas; 28 hypopneas and 6 central apneas. Average oxygen saturation 93% with oxygen thomas 77%. Obstructive sleep apnea-severe with mostly obstructive apneas and with nocturnal hypoxemia for 15% of the night per 2021 home sleep test. Periodic limb movement disorder (PLMD) 7 Tubular adenoma 03/26/2017 Overview (02/25/2024): Cecum and sigmoid polyps 02/2017 Vitamin D deficiency 03/26/2017 Restless legs syndrome 01/24/2016 Colon polyp 12/25/2015 Carpal tunnel syndrome 06/10/2011 Venous insufficiency 04/04/2011 Encounters Date Type Department Care Team Description 10/14/2024 10:40 AM EDT Office Visit [facility] [address] [facility] [address] [place] [address] Jana Botello PA Atrial fibrillation, unspecified type ([facility] V24, [facility] V28) (Primary Dx); Paroxysmal atrial fibrillation (CMS/[facility] V24, CMS/[facility] V28); Essential hypertension; ARGENIS (obstructive sleep apnea) from Last 3 Months Immunizations Name Administration Dates Next Due H1N1 Inj Preservative Free 05/23/2009 Influenza trivalent, 0.5mL ( Fluzone High-dose) 65yo and older 02/12/2023,03/27/2016 Pneumococcal conjugate 20 va lent (Prevnar 20, PCV 20) 2mo and older 09/09/2022 Pneumococcal polysaccharide 23 valent (Pneumovax 23) 2yo and older 05/23/2009 Tdap Tetanus diptheria acell ular pertussis (Boostrix; Adacel) 7yo and older 09/13/2014 Surgical History Surgery Date Site/Laterality Comments COLONOSCOPY 02/24/2017 tubular adenoma, cecum and sigmoid polyps SHOULDER SURGERY TOTAL KNEE ARTHROPLASTY Medical History Medical History Date Comments Anemia 03/2017 Asthma 03/2017 Atrial fibrillation ([facility] V24, [facility] V28) 03/2017 Eliquis. s/p cardiac ablatio n Carpal tunnel syndrome 06/10/2011 Colon polyp 12/25/2015 Family history of cardiovascular disease GERD (gastroesophageal reflux disease) 7 History of herpes zoster 01/26/2014 Hyperlipidemia Hypertension Hypothyroidism 03/26/2017 Knee joint replacement status ARGENIS (obstructive sleep apnea) Periodic limb movement disorder (PLMD) Restless legs syndrome 01/24/2016 Tubular adenoma 03/26/2017 Asymptomatic varicose veins, unspecified laterality Venous insufficiency 04/04/2011 Vitamin D deficiency 03/26/2017 Social History Tobacco Use Types Packs/Day Years Used Date Smoking Tobacco: Never Passive Smoke Exposure: Past Smokeless Tobacco: Never Tobacco Cessation:Counseling Given: Not Answered Alcohol Use Standard Drinks/Week Comments Not Currently 0 (1 standard drink = 0.6 oz pur e alcohol) Sex and Gender Information Value Date Recorded Sex Assigned at Not on file Legal Sex Male 10:46 PM EST Gender Identity Not on file Sexual Orientation Not on file Obstetrics History Last Filed Vital Signs Vital Sign Reading Time Taken Comments Blood Pressure 114/82 10/14/2024 10:44 AM EDT Pulse 57 10/14/2024 10:44 AM EDT Temperature 36.3 C (97.4 F) 08/09/2024 12:12 PM EDT Respiratory Rate - - Oxygen Saturation 98% 10/14/2024 10:44 AM EDT Inhaled Oxygen Concentration - - Weight 107 kg (235 lb) 10/14/2024 10:44 AM EDT Height 177.8 cm (5' 10 ) 10/14/2024 10:44 AM EDT Body Mass Index 33.72 10/14/2024 10:44 AM EDT Plan of Treatment Upcoming Encounters Date Type Department Care Team (Late st Contact Info) Description 02/09/2025 9:45 AM EDT Office Visit Internal Medicine - [address] [phone] Caleb Fuentes MD [address] [place] [address] 02/10/2025 1:00 PM EDT Office Visit Pulmonolgy - [address] [phone] Vesta Tobin MD [address] [place] [address] 04/21/2025 10:40 AM EST Office Visit [facility] - [address] [facility] [address] [place] [phone] Jana Botello PA [address] [place] [address] Health Maintenance Due Date Last Done Comments Zoster Vaccines (1 of 2) 2007 RSV Immunization Adult Patients (1 - Risk 60-74 years 1-dose series) 2017 Hepatitis C Screening 04/26/2022 Social Influencers of Health Screening 04/26/2022 Depression Screening 09/10/2023 09/09/2022 Falls Risk Assessment 09/10/2023 09/09/2022 Medicare Annual Wellness Visit 09/10/2023 09/09/2022 COVID-19 Vaccine ( - season) 2024 05/31/2021, 08/09/2020, 07/12/2020 DTaP,Tdap,and Td Vaccines (2 - Td or Tdap) 09/13/2024 09/13/2014 Influenza Vaccine (Season Ended) 2025 02/12/2023, 03/27/2016, 05/23/2009, Additional history exists Hypertension/CHF/CAD Annual BMP Blood Test 08/10/2025 08/10/2024, 07/24/2022 Colorectal Cancer Screening: Colonoscopy 02/09/2026 02/09/2021 Cholesterol Screening (Lipid Panel) 08/10/2029 08/10/2024, 07/24/2022 Pneumococcal Vaccine: 50+ Years Completed 09/09/2022, 05/23/2009 HIB Vaccines Aged Out No longer eligi ble based on patient's age to complete this topic HPV Vaccines Aged Out No longer eligi ble based on patient's age to complete this topic Hepatitis A Vaccines Aged Out No long er eligible based on patient's age to complete this topic Hepatitis B Vaccines Aged Out No long er eligible based on patient's age to complete this topic IPV Vaccines Aged Out No longer eligi ble based on patient's age to complete this topic MMR Vaccines Aged Out No longer eligi ble based on patient's age to complete this topic Meningococcal ACWY Vaccine Aged Out N o longer eligible based on patient's age to complete this topic Meningococcal B Vaccine Aged Out No l onger eligible based on patient's age to complete this topic RSV Immunization Patients Under 20 months Aged Out No longer eligible based on patient's age to complete this topic Varicella Vaccines Aged Out No longer eligible based on patient's age to complete this topic Procedures Procedure Name Priority Date/Time Associated Diagnosis Comments ECG 12-LEAD Routine 10/14/2024 11:02 AM EDT Atrial fibrillation, unspecified type (CMS/HCC V24, CMS/HCC V28) COMPREHENSIVE METABOLIC PANEL Routine 08/10/2024 11:50 AM EDT Hypercholesterolemia Primary hypertension Longstanding persistent atrial fibrillation (CMS/HCC V24, CMS/HCC V28) LIPID PANEL WITH REFLEX TO DIRECT LDL Routine 08/10/2024 11:50 AM EDT Hypercholesterolemia Primary hypertension Longstanding persistent atrial fibrillation (CMS/HCC V24, CMS/HCC V28) HM COLONOSCOPY Routine 02/09/2021 from Last 3 Months or Most Recently Relevant to Health Maintenance Results * ECG 12 lead (10/14/2024 11:02 AM EDT) Ventricular Rate ECG 57 BPM GEMUSE Atrial Rate 57 BPM GEMUSE P-R Interval 178 ms GEMUSE QRS Duration 108 ms GEMUSE Q-T Interval 412 ms GEMUSE QTc 401 ms GEMUSE P Wave [place] 51 degrees GEMUSE R [place] -2 degrees GEMUSE T [place] 25 degrees GEMUSE ECG Interpretation Sinus bradycardia When compared with ECG of 06-APR-2024 15:22, No significant change was found Confirmed by CHRISTINA POWER ([id number]) on 10/22/2024 2:17:21 PM GEMUSE 10/14/2024 10:5 0 AM EDT 10/22/2024 2:17 PM EDT us Jana SHELDON ECG ORDERABLES Edited Result - Final GEMUSE * Lipid panel with reflex to direct LDL (08/10/2024 11:50 AM EDT) Cholesterol 166 0 - 200 mg/dL LAB CHEMISTRY METHOD 08/10/2024 1:43 PM EDT [facility] Triglycerides 100 0 - 150 mg/dL LAB CHEMISTRY METHOD 08/10/2024 1:43 PM EDT [facility] HDL 60 >=40 mg/dL LAB CHEMISTRY METHOD 08/10/2024 1:43 PM EDT [facility] LDL Calculated 86 0 - 100 mg/dL LAB CHEMISTRY METHOD 08/10/2024 1:43 PM EDT [facility] VLDL Cholesterol Hunter 20 mg/dL LAB CHEMISTRY METHOD 08/10/2024 1:43 PM EDT [facility] Non HDL Chol. (LDL+VLDL) 106 <145 mg/dL LAB CHEMISTRY METHOD 08/10/2024 1:43 PM EDT [facility] Chol/HDL Ratio 2.8 0.0 - 4.4 LAB CHEMISTRY METHOD 08/10/2024 1:43 PM EDT [facility] Blood Venous blood specimen / Unknown Venipuncture / Unknown 08/10/2024 11:50 AM EDT 08/10/2024 12:25 PM EDT us Caleb Fuentes MD LAB BLOOD ORDERABLES Final Resul t [facility] [address] [place] [address], * (ABNORMAL) Comprehensive metabolic panel (08/10/2024 11:50 AM EDT) Pathologist [facility] Sodium 139 133 - 145 mmol/L LAB CHEMISTRY METHOD 08/10/2024 1:43 PM EDT [facility] Potassium 4.0 3.5 - 5.5 mmol/L LAB CHEMISTRY METHOD 08/10/2024 1:43 PM EDT [facility] Chloride 105 96 - 110 mmol/L LAB CHEMISTRY METHOD 08/10/2024 1:43 PM [facility] CO2 29 21 - 32 mmol/L LAB CHEMISTRY METHOD 08/10/2024 1:43 PM [facility] Anion Gap 5 3 - 11 LAB CHEMISTRY METHOD 08/10/2024 1:43 PM [facility] Glucose 104(H) 70 - 100 mg/dL LAB CHEMISTRY METHOD 08/10/2024 1:43 PM [facility] BUN 20 5 - 25 mg/dL LAB CHEMISTRY METHOD 08/10/2024 1:43 PM [facility] Creatinine 0.93 0.70 - 1.30 mg/dL LAB CHEMISTRY METHOD 08/10/2024 1:43 PM [facility] eGFR 90 >=60 mL/min/1. 73m2 LAB CHEMISTRY METHOD 08/10/2024 1:43 PM [facility] Comment:Calculation based on the Chronic Kidney Disease Epidemiology Collaboration (CKD-EPI) equation refit without adjustment for race. BUN/Creatinine Ratio 21.5 LAB CHEMISTRY METHOD 08/10/2024 1:43 PM [facility] Calcium 9.4 8.5 - 10.5 mg/dL LAB CHEMISTRY METHOD 08/10/2024 1:43 PM [facility] AST (SGOT) 23 10 - 42 unit/L LAB CHEMISTRY METHOD 08/10/2024 1:43 PM [facility] ALT (SGPT) 27 10 - 60 unit/L LAB CHEMISTRY METHOD 08/10/2024 1:43 PM [facility] Alkaline Phosphatase 81 42 - 121 unit/L LAB CHEMISTRY METHOD 08/10/2024 1:43 PM [facility] Total Protein 7.4 6.0 - 8.0 g/dL LAB CHEMISTRY METHOD 08/10/2024 1:43 PM [facility] Albumin 3.8 3.2 - 5.0 g/dL LAB CHEMISTRY METHOD 08/10/2024 1:43 PM EDT [facility] Total Bilirubin 0.8 0.0 - 1.4 mg/dL LAB CHEMISTRY METHOD 08/10/2024 1:43 PM EDT [facility] Blood Venous blood specimen / Unknown Venipuncture / Unknown 08/10/2024 11:50 AM EDT 08/10/2024 12:25 PM EDT Caleb Fuentes MD LAB BLOOD ORDERABLES Final Resul t [facility] [address] [place] [address], [place] [phone] * Colonoscopy (02/09/2021) Colonoscopy Normal, Abstracted Anatomical Region Laterality Modality Other Historical Provider HEALTH MAINTENANCE Final Result from Last 3 Months or Most Recently Relevant to Health Maintenance Insurance [place]ICAID - [place] [employer] MEDICARE Care Teams Tray Filler Relationship Specialty Start Date End Date Caleb Fuentes MD [address] [place] [id number] PCP - General Internal Medicine 04/27/18
--- OUTSIDE RECORDS SUMMARY | 2024-11-18 13:18 | XMS_ITS | Clinical Summary ---
Author Organization [facility] Address [address] [place] [address] Care Team Providers Care Health Specialist Name Role Phone Caleb Fuentes MD Primary Care Provider Unavailab le Allergies No known active allergies Medications Medication Sig Dispensed Refills Start Date End Date Status betamethasone, augmented, (DIPROLENE) 0.05 % lotion Apply topically 2 (two) times a day. 0 Active levothyroxine (SYNTHROID, LEVOXYL) tablet 50 mcg Take 50 mcg by mouth every morning on an empty stomach. 0 Active clotrimazole (LOTRIMIN) 1 % cream Apply topically 2 (two) times a day. 0 Active apixaban (ELIQUIS) 5 MG TABS tablet Take 5 mg by mouth every 12 (twelve) hours. 0 Active celecoxib (CeleBREX) 200 MG capsule Take 200 mg by mouth daily. 0 Active propafenone (RYTHMOL SR) 225 MG 12 hr capsule Take 225 mg by mouth 2 (two) times a day. 0 Active beclomethasone dipropionate (QVAR) 40 MCG/ACT inhaler Inhale 2 puffs into the lungs 2 (two) times a day. 0 Active dilTIAZem (CARDIZEM CD) 240 MG 24 hr capsule Take 240 mg by mouth daily. 3 04/10/2019 Active vitamin B-12 (CYANOCOBALAMIN) tablet 1000 mcg TAKE 1 TABLET BY MOUTH EVERY DAY 30 tablet 11 02/04/2022 Active rosuvastatin (CRESTOR) tablet 10 mg Take 1 tablet (10 mg total) by mouth daily. 0 Active Active Problems Problem Noted Date Diagnosed Date Ureteral calculi 04/05/2022 Absolute anemia 06/07/2019 Macrocytic anemia 04/20/2019 Acquired hypothyroidism 04/20/2019 Paroxysmal atrial fibrillation 04/20/2019 Social History Tobacco Use Types Packs/Day Years Used Date Smoking Tobacco: Never Smokeless Tobacco: Never Alcohol Use Standard Drinks/Week Comments Yes 0 (1 standard drink = 0.6 oz pur e alcohol) Socially Sex and Gender Information Value Date Recorded Sex Assigned at Not on file Gender Identity Not on file Sexual Orientation Not on file Job Start Date Occupation Industry Not on file Not on file Not on file Last Filed Vital Signs Vital Sign Reading Time Taken Comments Blood Pressure 134/87 10/18/2022 2:04 PM EDT Pulse 65 10/18/2022 2:04 PM EDT Temperature 37 C (98.6 F) 10/18/2022 2:04 PM EDT Respiratory Rate - - Oxygen Saturation 97% 10/18/2022 2:04 PM EDT Inhaled Oxygen Concentration - - Weight 113.4 kg (250 lb) 10/18/2022 2:04 PM EDT Height 181.6 cm (5' 11.5 ) 10/18/2022 2:04 PM ED T Body Mass Index 34.38 10/18/2022 2:04 PM EDT Plan of Treatment Health Maintenance Due Date Last Done Comments Hepatitis C Screening 1955 COVID-19 Vaccine (#1) 1957 Depression Screening 1969 BMI Counseling 1975 Preventative Health Evaluation 1975 Colon Cancer Screening (Colonoscopy) 2002 Shingrix-Zoster Vaccine (1 o f 2) 2007 Fall Risk Assessment 2022 Pneumococcal Vaccine (2 of 2 - PCV) 2022 05/23/2009 DTap / Tdap / Td (2 - Td or Tdap) 09/13/2024 09/13/2014 Influenza Vaccine (Season Ended) 2025 03/27/2016, 05/23/2009 RSV Adult > 60+ Yrs or (1 - 1-dose 75+ series) 02/03/2032 Hepatitis B Vaccines Aged Out No long er eligible based on patient's age to complete this topic RSV Ped < 20 months Aged Out No longe r eligible based on patient's age to complete this topic Care Teams Health Specialist Relationship Specialty Start Date End Date Caleb Fuentes MD PCP - General Internal Medicine 03/04/19
--- OUTSIDE RECORDS SUMMARY | 2024-11-18 13:18 | XMS_ITS | Clinical Summary ---
Author Organization [facility] Address [address] [facility] [address] [place] [address] Phone Care Team Providers Care Necktie Stitcher Name Role Phone Caleb Fuentes MD Primary Care Provider Allergies No known active allergies Medications albuterol HFA (PROVENTIL HFA;VENTOLIN HFA) 108 (90 Base) MCG/ACT inhaler Inhale 2 puffs 09/28/2021 Active celecoxib (CeleBREX) 200 MG capsule Take 1 capsule by mouth 01/29/2021 Active levothyroxine (SYNTHROID, LEVOTHROID) 50 MCG tablet Take 1 tablet by mouth 1 (one) time each day 03/05/2022 Active propafenone SR (RYTHMOL SR) 225 MG 12 hr capsule Take 1 capsule by mouth in the morning and 1 capsule in the evening. 03/21/2022 Active rosuvastatin (CRESTOR) 10 MG tablet Take 10 mg by mouth 1 (one) time each day 09/17/2021 Active terbinafine (LamISIL) 250 MG tablet Take 1 tablet by mouth 1 (one) time each day 05/09/2022 Active dilTIAZem CD (CARDIZEM CD) 240 MG 24 hr capsule Take 1 capsule by mouth 1 (one) time each day 09/23/2022 Active clopidogrel (PLAVIX) 75 MG tablet Take 75 mg by mouth 1 (one) time each day 07/16/2023 Active aspirin (ST ABILIO) 81 MG EC tablet Take 81 mg by mouth 1 (one) time each day Active hydroCHLOROthia zide 12.5 MG tablet Take 1 tablet (12.5 mg total) by mouth 1 (one) time each day 90 tablet 3 02/26/2024 Active Active Problems Problem Noted Date Diagnosed Date Aftercare following joint replacement surgery 04/18/2023 Body mass index (BMI) 33.0-33.9, adult 3 04/18/2023 Iron deficiency anemia 11/27/2022 Long-term current use of anticoagulant 3 04/18/2023 [facility] current use of non-steroidal anti-infl ammatories 11/27/2022 04/18/2023 Obesity 11/27/2022 04/18/2023 Other correction current drug therapy 11/27/2022 04/18/2023 Personal history of urinary tract infection 11/1604/18/2023 Presence of left artificial knee joint 3 04/18/2023 Renal calculus 10/29/2022 Dysuria 10/29/2022 Personal history of kidney stones 06/06/2022 Hypothyroidism 04/20/2019 Primary hypertension 03/26/2017 Hyperlipidemia 03/26/2017 Resolved Problems Problem Noted Date Diagnosed Date Resolved Date Ureteric stone 04/05/2022 06/05/2022 Dyspnea on exertion 03/21/2022 06/05/19 23 Dizziness 03/28/2021 06/05/2022 Anemia 06/07/2019 06/05/2022 Paroxysmal atrial fibrillation 04/20/2019 06/05/2022 Venous varices 01/13/2018 06/05/2022 Asthma 03/26/2017 06/05/2022 Gastroesophageal reflux disease 03/26/2017 06/05/2022 H/O: artificial joint 03/26/20172022 Obstructive sleep apnea syndrome 03/26/2017 06/05/2022 Overview (06/05/2022): CPAP SMS Home sleep test 10/04/2021. Weight 265; BMI 37.AHI 65. 415 obstructive apneas; 28 hypopneas and 6 central apneas. Average oxygen saturation 93% with oxygen thomas 77%. Obstructive sleep apnea-severe with mostly obstructive apneas and with nocturnal hypoxemia for 15% of the night per 2021 home sleep test. Vitamin D deficiency 03/26/2017 023 Tubular adenoma 03/26/2017 06/05/2022 Overview (06/05/2022): Cecum and sigmoid polyps 02/2017 Restless legs 01/24/2016 06/05/2022 Polyp of colon 12/25/2015 06/05/2022 History of herpes zoster 01/26/2014 Carpal tunnel syndrome 06/10/201106/05 Venous insufficiency 04/04/2011 023 Immunizations Immunization Administration Dates Next Due Influenza, Unspecified 03/27/2016 Pneumococcal Polysaccharide 05/23/2009 Tdap 09/13/2014 Family History Medical History Relation Comments Nephrolithiasis Father Relation Status Comments Father Social History Tobacco Use Types Packs/Day Years Used Date Smoking Tobacco: Never Smokeless Tobacco: Never Tobacco Cessation:Counseling Given: Not Answered Alcohol Use Standard Drinks/Week Comments Not Currently 0 (1 standard drink = 0.6 oz pur e alcohol) Sex and Gender Information Value Date Recorded Sex Assigned at Not on file Legal Sex Male 8:18 AM EDT Gender Identity Not on file Sexual Orientation Not on file Last Filed Vital Signs Vital Sign Reading Time Taken Comments Blood Pressure 116/60 02/03/2024 1:04 PM EDT Pulse 67 02/03/2024 1:04 PM EDT Temperature - - Respiratory Rate - - Oxygen Saturation 98% 02/03/2024 1:04 PM EDT Inhaled Oxygen Concentration - - Weight 104 kg (230 lb) 02/03/2024 1:04 PM EDT Height - - Body Mass Index - - Plan of Treatment Upcoming Encounters Date Type Department Care Team (Late st Contact Info) Description 2025 1:00 PM EDT [facility] Visit [facility] [address] [address] Sharon Breen ARNP [address] [address] Health Maintenance Due Date Last Done Comments Colorectal Cancer Screening: Annual FOBT 2006 Colorectal Cancer Screening: Colonoscopy 2006 Colorectal Cancer Screening: Sigmoidoscopy 2006 Pneumococcal Vaccine: 50+ Ye ars (2 of 2 - PCV) 05/23/2010 05/23/2009 Influenza Vaccine (Season Ended) 2025 03/27/20 16 Pneumococcal Vaccine: Peds ( 0 to 5 Years) and At-Risk Patients (6 to 49 Years) Discontinued 05/23/2009 Hepatitis B Vaccine Aged Out No longe r eligible based on patient's age to complete this topic Insurance [employer] [facility] Adv PPO [id number]) [employer] [facility] Adv PPO ([id number]) Care Teams Necktie Stitcher Relationship Specialty Start Date End Date Caleb Fuentes MD [address] [place] [id number] PCP - General Internal Medicine 03/11/22
[2024-11-18 15:23] LABS: Anion Gap 12 (12-20); Blood Urea Nitrogen 20 mg/dL (9-16); Calcium 9.3 mg/dL (8.4-10.2); Carbon Dioxide 27 mmol/L (22-29); Chloride 107 mmol/L (96-108); Estimated Glomerular Filt Rate > 60; Potassium 4.3 mmol/L (3.3-5.1); Sodium 142 mmol/L (135-145)
== END 2024-11-18 13:12 | disposition home or self-care (01) ==
LOC: HO.HKASLDS 13:11
PROVIDERS: Visit Provider Internal Medicine Nephrology
DX: N20.0 Calculus of kidney (principal)
CPT/HCPCS: 36415; 80051; 82310; 82565; 84520

== ENCOUNTER 2024-11-25 09:45 | Outpatient (AMB) | payer OTHER, SELFPAY ==
--- NOTE | 2024-11-25 09:46 | HO.NEPHOV_ITS ---
Vital Signs 11/25/24 09:47 Height 5 ft 11 in Weight 238 lb BMI 33.2 BP 122/76 Blood Pressure Location Lt brachial Position Sitting Pulse 61 Pulse Source Pulse Oximeter Pulse Oximetry (%) 96 Oxygen Delivery Method Room Air Intake Visit Reasons: 6mon follow-up w/labs-Conf Vp Cardiovascular Required: No Accompanied by: Self / Same As Patient Allergies No Known Allergies Allergy (Verified 11/25/24 09:49) HPI Comments Details: Brent has history of nephrolithiasis. He was seen in follow-up for his nephrocalcinosis. He had seen Urology in the past. Stone analysis had shown calcium oxalate. His dad had renal calculi. He has lost tremendous amount of weight by lifestyle modifications. 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 He is not on any anticoagulation since he had watchman device placement. He does not have any urinary symptoms, flank pain, dizziness. His blood pressure has been at goal. He feels well [facility] Medical History (Updated 02/19/24 @ 11:16 by Crispin Rodriguez MD) Kidney stones Partial deafness Presence of Watchman left atrial appendage closure device Surgical History History of carpal tunnel release History of shoulder surgery History of knee replacement Family History Paternal Grandmother Heart disease Social History Alcohol intake: never Patient Tobacco Use Status: Never used Tobacco Review of Systems Const All systems reviewed & are unremarkable except as noted in HPI and below Physical Exam Vital Signs: Last Vital Signs Pulse 61 11/25/24 09:47 BP 122/76 11/25/24 09:47 Pulse Ox 96 11/25/24 09:47 Oxygen Delivery Method Room Air 11/25/24 09:47 BMI result Body Mass Index 33.2 Const General: comfortable and no acute distress Orientation/consciousness: patient oriented x3 HEENT Head: Yes normocephalic Mouth: Normal oral and palatal mucosa present Eyes EOM: EOMs intact bilaterally Neck Neck: Yes supple Resp Auscultation: clear to auscultation bilaterally Cardio Jugular venous distension: no JVD Rate: regular rate GI Palpation (GI): Soft to palpation Auscultation: normal bowel sounds General: Yes no CVA tenderness Back/Spine/Pelvis Back: no CVA tenderness Skin General skin exam: no rashes or lesions noted Neuro General: patient oriented x3 and moves all extremities Extrem General: Yes no pedal edema Results Reviewed Nephrology Results: Sodium, (135-145) 142 mmol/L 11/18/24 Potassium, (3.3-5.1) 4.3 mmol/L 11/18/24 Chloride, (96-108) 107 mmol/L 11/18/24 Carbon Dioxide, (22-29) 27 mmol/L 11/18/24 BUN, (9-16) 20 mg/dL H 11/18/24 Creatinine, (0.5-1.4) 0.85 mg/dL 11/18/24 Calcium, (8.4-10.2) 9.3 mg/dL 11/18/24 Renal US 02/26/24 Assessment & Plan Assessment & Plan (1) Kidney stones: Code(s): N20.0 - Calculus of kidney Category: Medical Plan 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 His renal functions has been normal. 24 hour urine by [employer] in April 2023 showed high uric acid levels in the urine but had normal serum uric acid. He is on hydrochlorothiazide 12.5 mg daily. He maintains good hydration. He does not consume excess sodium in the diet. He eats less meat but more fruits and vegetables. His last renal ultrasound showed a single stone 0.7 cm right kidney . I ordered a follow up USS. I shall do a 24 hour urine along with serum uric acid, electrolytes and renal function with time. I have ordered lab work today. All questions answered Orders: Orders Uric Acid 6 Months N20.0 - Calculus of kidney US renal BI 4 Weeks N20.0 - Calculus of kidney Electrolytes 6 Months N20.0 - Calculus of kidney Calcium 6 Months N20.0 - Calculus of kidney Blood Urea Nitrogen 6 Months N20.0 - Calculus of kidney Creatinine 6 Months N20.0 - Calculus of kidney Coding Level of Care Code Est Pt Level 4 (19791) Diagnoses Kidney stones N20.0
[2024-11-25 09:47] VITALS: BP 122/76; PULSE 61; O2SAT 96; BMI 33.2
--- OUTSIDE RECORDS SUMMARY | 2024-11-25 10:17 | XMS_ITS | Data Portability ---
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 Active 2020 Sudden idiopathi c hearing loss, right ear; Note: Date Diagnosed : 01/12/2021 3:08 PM (H91.21) Not Available [facility] 4 02:57:37 Neck pain 73185580 Active 2020 Cervicalg ia; Note: Date Diagnosed : 01/19/2021 5:56 PM (M54.2) Not Available [facility] 4 02:57:36 Sensorine ural hearing loss of bilateral ears 771069915 Active 2024 TAMMY THORNTON [address] [facility],[place] [address], [place], [phone] , [facility] - [facility] 5 10:48:48 Impacted cerumen in left ear 09961205414 14042 Active 2024 SERA ERNST MD [address] [place] [address],[place] [address], [place] [phone] , [facility] - [facility] 5 11:17:29 Otalgia of left ear 5938202937 Active 2024 SERA ERNST MD [address] [place] [address],[place] [address], [place], [phone] , [facility] - [facility] 5 11:17:36 Problem Notes None recorded. Procedures Surgical History Date Name Laterality Status Provider Name and Address Organization Details Recorded Time 07/07/2024 Comp Audio with Tymps - 84008 & 79815 completed MIRELLA GARCIA, TAMMY [address] [facility],[place] [address], [place], [address], [facility] [place] 07/07/2024 10:48:40 07/07/2024 Wax_DP completed SREA ERNST MD [address] [place] [address],[address], [address], [facility] [place] 07/07/2024 11:17:11 Imaging Results None recorded. Procedure Notes None recorded. Medical Equipment None Reported. Medications Name Sig Start Date Stop Date Status Note LastModified by Organization Details LastModified Time celecoxib 200 mg capsule TAKE 1-2 CAPS BY MOUTH DAILY NEEDED FOR PAIN active Not Available Not Available No t Available Nasal Maurepas (oxymetazo line) 0.05 % 2020 active Medicatio n ID: [id number] Br and Name: Nasal Maurepas (oxymetaz oline) Se nd Method: E-Prescri bed Subs Allowed: subs OK Specia l Instructi on: PLACE 2 SPRAYS BY NASAL ROUTE 2 TIMES DAILY FOR 3 DAYS. Med icationGe nericName : Nasal Maurepas (oxymetaz oline) Not Available Not Available Not Available prednisone 10 mg tablet by mouth 2020 active Medicatio n ID: [id number] Pr escribed By Name: Hien Mathews MD [...] mcg tablet 2020 active Medicatio n ID: [id number] Br and Name: cyanocoba elizabeth (vitamin B-12) [...] spray,susp ension 2020 active Medicatio n ID: [id number] Br and Name: fluticaso ne propionat e [...] Updated DateTime 07/07/2024 162.56 cm 41.7 kg/m2 187859.95 g Sheila Hoover [place] - [facility] 07/07/2024 10:56:40 Social History None recorded. Functional Status None recorded. Mental Status None recorded. Family History Nothing Reported. Medical History No medical history recorded. Past Encounters Encounter ID Performer Location Encounter Start Date Encounter Closed Date Diagnosis/Indication Diagnosis SNOMED-CT Code Diagnosis ICD10 Code Diagnosis Note [id number] SERA ERNST MD [facility] [address] [phone] 07/07/2024 10:23:30 07/07/2024 11:17:40 Sensorineural hearing loss of bilateral ears [id number] H90.3 Audiologic al evaluation results: 07/07/2024 Right ear: Severe sloping to profound sensorineu ral hearing loss with no measurable word recognitio n. Left ear: Normal sloping to moderately severe sensorineu ral hearing loss with excellent word recognitio n. Tympanomet ry: Right Ear:Type A Left Ear:Type A Impacted c erumen in left ear [id number] 845075 H61.22 Ears were meticulous ly cleaned LEFT [...] recommende d. Otalgia of left ear 1010 607921 H92.02 The patient complains of intermitte nt [...] Rees Member ID Guarantor Name 07/07/2024 2 [place] [facility] Brent Ramires [id number] Brent Ramires 07/07/2024 1 [facility] (MEDICARE REPLACEMENT/A DVANTAGE - PPO) Brent Ramires [id number] Brent Ramires Notes Date Note Type Note Provider Name and Address Organization Details Recorded Time 07/07/2024 text/html Left otalgiaonse t about Apr 2024sharp pain below left earno otorrheatried hearing aids years ago but does not use them now PV 2020 [employer], Right sudden SNHL profound, MRI normal. no response to ITI SERA ERNST MD [address] [place] [address], [place], [address], [place] - [facility] 07/07/2024 11:20:20
--- OUTSIDE RECORDS SUMMARY | 2024-11-25 10:18 | XMS_ITS | Clinical Summary ---
Author Organization [facility] Address [address] [place] [address] Care Team Providers Care Scissors Grinder Name Role Phone Caleb Fuentes MD Primary [...] Td or Tdap) 09/13/2024 09/13/2014 Influenza Vaccine (#1) 2025 6, 05/23/2009 RSV Adult > 60+ Yrs or (1 - 1-dose 75+ series) 02/03/2032 Hepatitis B Vaccines Aged Out No long er eligible based on patient's age to complete this topic RSV Ped < 20 months Aged Out No longe r eligible based on patient's age to complete this topic Care Teams Scissors Grinder Relationship Specialty Start Date End Date Caleb Fuentes MD PCP - General Internal Medicine 03/04/19
--- OUTSIDE RECORDS SUMMARY | 2024-11-25 10:18 | XMS_ITS | Clinical Summary ---
Author Organization [address] [place] [address] [place] [phone] Phone Care Team Providers Care Surgical Technology Instructor Name Role Phone Caleb Fuentes MD Primary Care Provider [phone] Allergies No known active allergies Medications albuterol [...] apneas. Average oxygen saturation 93% with oxygen thomsa 77%. Obstructive sleep apnea-severe with mostly obstructive [...] Description 10/14/2024 10:40 AM EDT Office Visit [facility] [address] [facility] [address] [place] [address] Jana Botello PA Atrial fibrillation, unspecified type ([facility] V24, [facility] V28) (Primary Dx); Paroxysmal atrial fibrillation ([facility] V24, [facility] V28); Essential hypertension; ARGENIS (obstructive sleep apnea) [...] Comments Anemia 03/2017 Asthma 03/2017 Atrial fibrillation ([facility] V24, [facility] V28) 03/2017 Eliquis. s/p cardiac ablatio n [...] AM EDT Office Visit Internal Medicine - [address] [phone] Caleb Fuentes MD [address] [place] [address] 02/10/2025 1:00 PM EDT Office Visit Pulmonolgy - [address] [phone] Vesta Tobin MD [address] [place] [address] 04/21/2025 10:40 AM EST Office Visit [facility] - [address] [facility] [address] [place] [phone] Jana Botello PA [address] [place] [address] Health Maintenance Due Date Last Done Comments [...] Tdap) 09/13/2024 09/13/2014 Influenza Vaccine (#1) 2025 , 03/27/2016, 05/23/2009, Additional history exists Hypertension/CHF/CAD Annual [...] GEMUSE QTc 401 ms GEMUSE P Wave [place] 51 degrees GEMUSE R [place] -2 degrees GEMUSE T [place] 25 degrees GEMUSE ECG Interpretation Sinus bradycardia [...] LAB CHEMISTRY METHOD 08/10/2024 1:43 PM EDT [facility] Triglycerides 100 0 - 150 mg/dL LAB CHEMISTRY METHOD 08/10/2024 1:43 PM EDT [facility] HDL 60 >=40 mg/dL LAB CHEMISTRY METHOD 08/10/2024 1:43 PM EDT [facility] LDL Calculated 86 0 - 100 mg/dL LAB CHEMISTRY METHOD 08/10/2024 1:43 PM EDT [facility] VLDL Cholesterol [place] 20 mg/dL LAB CHEMISTRY METHOD 08/10/2024 1:43 PM EDT [facility] Non HDL Chol. (LDL+VLDL) 106 <145 mg/dL LAB CHEMISTRY METHOD 08/10/2024 1:43 PM EDT [facility] Chol/HDL Ratio 2.8 0.0 - 4.4 LAB CHEMISTRY METHOD 08/10/2024 1:43 PM EDT [facility] Blood Venous blood specimen / Unknown Venipuncture / Unknown 08/10/2024 11:50 AM EDT 08/10/2024 12:25 PM EDT us Caleb Fuentes MD LAB BLOOD ORDERABLES Final Resul t [facility] [address] [place] [address], * (ABNORMAL) Comprehensive metabolic panel (08/10/2024 11:50 AM EDT) Pathologist [facility] Sodium 139 133 - 145 mmol/L LAB CHEMISTRY METHOD 08/10/2024 1:43 PM EDT [facility] Potassium 4.0 3.5 - 5.5 mmol/L LAB CHEMISTRY METHOD 08/10/2024 1:43 PM EDT [facility] Chloride 105 96 - 110 mmol/L LAB CHEMISTRY METHOD 08/10/2024 1:43 PM [facility] CO2 29 21 - 32 mmol/L LAB CHEMISTRY METHOD 08/10/2024 1:43 PM [facility] Anion Gap 5 3 - 11 LAB CHEMISTRY METHOD 08/10/2024 1:43 PM [facility] Glucose 104(H) 70 - 100 mg/dL LAB CHEMISTRY METHOD 08/10/2024 1:43 PM [facility] BUN 20 5 - 25 mg/dL LAB CHEMISTRY METHOD 08/10/2024 1:43 PM [facility] Creatinine 0.93 0.70 - 1.30 mg/dL LAB CHEMISTRY METHOD 08/10/2024 1:43 PM [facility] eGFR 90 >=60 mL/min/1. 73m2 LAB CHEMISTRY METHOD 08/10/2024 1:43 PM [facility] Comment:Calculation based on the Chronic Kidney Disease Epidemiology Collaboration (CKD-EPI) equation refit without adjustment for race. BUN/Creatinine Ratio 21.5 LAB CHEMISTRY METHOD 08/10/2024 1:43 PM [facility] Calcium 9.4 8.5 - 10.5 mg/dL LAB CHEMISTRY METHOD 08/10/2024 1:43 PM [facility] AST (SGOT) 23 10 - 42 unit/L LAB CHEMISTRY METHOD 08/10/2024 1:43 PM [facility] ALT (SGPT) 27 10 - 60 unit/L LAB CHEMISTRY METHOD 08/10/2024 1:43 PM [facility] Alkaline Phosphatase 81 42 - 121 unit/L LAB CHEMISTRY METHOD 08/10/2024 1:43 PM [facility] Total Protein 7.4 6.0 - 8.0 g/dL LAB CHEMISTRY METHOD 08/10/2024 1:43 PM [facility] Albumin 3.8 3.2 - 5.0 g/dL LAB CHEMISTRY METHOD 08/10/2024 1:43 PM EDT [facility] Total Bilirubin 0.8 0.0 - 1.4 mg/dL LAB CHEMISTRY METHOD 08/10/2024 1:43 PM EDT [facility] Blood Venous blood specimen / Unknown Venipuncture / Unknown 08/10/2024 11:50 AM EDT 08/10/2024 12:25 PM EDT Caleb Fuentes MD LAB BLOOD ORDERABLES Final Resul t [facility] [address] [place] [address], [place] [phone] * Colonoscopy (02/09/2021) Colonoscopy Normal, Abstracted Anatomical Region Laterality Modality Other Historical Provider HEALTH MAINTENANCE Final Result from Last 3 Months or Most Recently Relevant to Health Maintenance Insurance MEDICAID - [place] [employer] MEDICARE Care Teams Surgical Technology Instructor Relationship Specialty Start Date End Date Caleb Fuentes MD [address] [place] [id number] PCP - General Internal Medicine 04/27/18
--- OUTSIDE RECORDS SUMMARY | 2024-11-25 10:18 | XMS_ITS | Clinical Summary ---
Author Organization [facility] Address [address] [facility] [address] [place] [address] Phone Care Team Providers Care Handstitching Machine Armhole Feller Name Role Phone Caleb Fuentes MD Primary Care Provider [phone] Allergies No known active allergies Medications albuterol [...] Long-term current use of anticoagulant 3 04/18/2023 penitentiary current use of non-steroidal anti-infl ammatories 11/27/2022 04/18/2023 Obesity 11/27/2022 04/18/2023 Other bench machine operator current drug therapy 11/27/2022 04/18/2023 Personal history [...] Visit [facility] [address] [address] Sharon Breen ARNP [address] [address] Health Maintenance Due Date Last Done Comments Colorectal Cancer Screening: Annual FOBT 2006 Colorectal Cancer Screening: Colonoscopy 2006 Colorectal Cancer Screening: Sigmoidoscopy 2006 Pneumococcal Vaccine: 50+ Ye ars (2 of 2 - PCV) 05/23/2010 05/23/2009 Influenza Vaccine (#1) 2025 03/27/2016 Pneumococcal Vaccine: Peds ( 0 to 5 Years) and At-Risk Patients (6 to 49 Years) Discontinued 05/23/2009 Hepatitis B Vaccine Aged Out No longe r eligible based on patient's age to complete this topic Insurance Aetna [facility] Adv PPO ([id number]) Aetna [facility] Adv PPO ([id number]) Care Teams Handstitching Machine Armhole Feller Relationship Specialty Start Date End Date Caleb Fuentes MD [address] [place] [phone] PCP - General Internal Medicine 03/11/22
== END 2024-11-25 10:15 | disposition home or self-care (01) ==
LOC: HO.HKAS 09:46
PROVIDERS: PCP Internal Medicine; Visit Provider Internal Medicine Nephrology
DX: N20.0 Calculus of kidney (principal)
CPT/HCPCS: 99214

== ENCOUNTER 2024-12-01 12:04 | Outpatient (REF) | payer MEDICARE, SELFPAY ==
--- OUTSIDE RECORDS SUMMARY | 2024-12-01 13:08 | XMS_ITS | Clinical Summary ---
Author Organization [facility] Address [address] [facility] [address] [place] [address] Phone Care Team Providers Care Gold And Silver Assayer Name Role Phone Caleb Fuentes MD Primary [...] ammatories 11/27/2022 04/18/2023 Obesity 11/27/2022 04/18/2023 Other extermination inspector current drug therapy 11/27/2022 04/18/2023 Personal history [...] Visit [facility] [address] [address] Sharon Breen ARNP [address] [address] Health Maintenance Due Date Last [...] age to complete this topic Insurance Aetna [facility] Adv PPO ([id number]) Aetna [facility] Adv PPO ([id number]) Care Teams Gold And Silver Assayer Relationship Specialty Start Date End Date Caleb Fuentes MD [address] [place] [phone] PCP - General Internal Medicine 03/11/22
--- OUTSIDE RECORDS SUMMARY | 2024-12-01 13:08 | XMS_ITS | Clinical Summary ---
Author Organization [facility] Address [address] [place] [address] Care Team Providers Care Industrial Hygenist Name Role Phone Caleb Fuentes MD Primary [...] age to complete this topic Care Teams Industrial Hygenist Relationship Specialty Start Date End Date Caleb Fuentes MD PCP - General Internal Medicine 03/04/19
--- OUTSIDE RECORDS SUMMARY | 2024-12-01 13:08 | XMS_ITS | Clinical Summary ---
Author Organization [address] [place] [address] [place] [phone] Phone Care Team Providers Care Men'S Leather Dress Belt Maker Name Role Phone Caleb Fuentes MD Primary Care Provider [phone] Allergies No known active allergies Medications albuterol [...] Description 10/14/2024 10:40 AM EDT Office Visit [facility] - [address] [facility] [address] [place] [address] Jana Botello PA Atrial fibrillation, unspecified type ([facility] V24, [facility] V28) (Primary Dx); Paroxysmal atrial fibrillation (CMS/[facility] V24, CMS/[facility] V28); Essential hypertension; ARGENIS (obstructive sleep apnea) [...] Comments Anemia 03/2017 Asthma 03/2017 Atrial fibrillation ([facility] V24, [facility] V28) 03/2017 Eliquis. s/p cardiac ablatio n [...] AM EDT Office Visit Internal Medicine - [address] [phone] Caleb Fuentes MD [address] [place] [address] 02/10/2025 1:00 PM EDT Office Visit Pulmonolgy - [address] [phone] Vesta Tobin MD [address] [place] [address] 04/21/2025 10:40 AM EST Office Visit [facility] - [address] [facility] [address] [place] [phone] Jana Botello PA [address] [place] [address] Health Maintenance Due Date Last Done Comments [...] GEMUSE QTc 401 ms GEMUSE P Wave [place] 51 degrees GEMUSE R [place] -2 degrees GEMUSE T [place] 25 degrees GEMUSE ECG Interpretation Sinus bradycardia [...] LAB CHEMISTRY METHOD 08/10/2024 1:43 PM EDT [facility] Triglycerides 100 0 - 150 mg/dL LAB CHEMISTRY METHOD 08/10/2024 1:43 PM EDT [facility] HDL 60 >=40 mg/dL LAB CHEMISTRY METHOD 08/10/2024 1:43 PM EDT [facility] LDL Calculated 86 0 - 100 mg/dL LAB CHEMISTRY METHOD 08/10/2024 1:43 PM EDT [facility] VLDL Cholesterol Hunter 20 mg/dL LAB CHEMISTRY METHOD 08/10/2024 1:43 PM EDT [facility] Non HDL Chol. (LDL+VLDL) 106 <145 mg/dL LAB CHEMISTRY METHOD 08/10/2024 1:43 PM EDT [facility] Chol/HDL Ratio 2.8 0.0 - 4.4 LAB CHEMISTRY METHOD 08/10/2024 1:43 PM EDT [facility] Blood Venous blood specimen / Unknown Venipuncture / Unknown 08/10/2024 11:50 AM EDT 08/10/2024 12:25 PM EDT us Caleb Fuentes MD LAB BLOOD ORDERABLES Final Resul t [facility] [address] [place] [address], * (ABNORMAL) Comprehensive metabolic panel (08/10/2024 11:50 AM EDT) Pathologist [facility] Sodium 139 133 - 145 mmol/L LAB CHEMISTRY METHOD 08/10/2024 1:43 PM EDT [facility] Potassium 4.0 3.5 - 5.5 mmol/L LAB CHEMISTRY METHOD 08/10/2024 1:43 PM EDT [facility] Chloride 105 96 - 110 mmol/L LAB CHEMISTRY METHOD 08/10/2024 1:43 PM [facility] CO2 29 21 - 32 mmol/L LAB CHEMISTRY METHOD 08/10/2024 1:43 PM [facility] Anion Gap 5 3 - 11 LAB CHEMISTRY METHOD 08/10/2024 1:43 PM [facility] Glucose 104(H) 70 - 100 mg/dL LAB CHEMISTRY METHOD 08/10/2024 1:43 PM [facility] BUN 20 5 - 25 mg/dL LAB CHEMISTRY METHOD 08/10/2024 1:43 PM [facility] Creatinine 0.93 0.70 - 1.30 mg/dL LAB CHEMISTRY METHOD 08/10/2024 1:43 PM [facility] eGFR 90 >=60 mL/min/1. 73m2 LAB CHEMISTRY METHOD 08/10/2024 1:43 PM [facility] Comment:Calculation based on the Chronic Kidney Disease Epidemiology Collaboration (CKD-EPI) equation refit without adjustment for race. BUN/Creatinine Ratio 21.5 LAB CHEMISTRY METHOD 08/10/2024 1:43 PM [facility] Calcium 9.4 8.5 - 10.5 mg/dL LAB CHEMISTRY METHOD 08/10/2024 1:43 PM [facility] AST (SGOT) 23 10 - 42 unit/L LAB CHEMISTRY METHOD 08/10/2024 1:43 PM [facility] ALT (SGPT) 27 10 - 60 unit/L LAB CHEMISTRY METHOD 08/10/2024 1:43 PM [facility] Alkaline Phosphatase 81 42 - 121 unit/L LAB CHEMISTRY METHOD 08/10/2024 1:43 PM [facility] Total Protein 7.4 6.0 - 8.0 g/dL LAB CHEMISTRY METHOD 08/10/2024 1:43 PM [facility] Albumin 3.8 3.2 - 5.0 g/dL LAB CHEMISTRY METHOD 08/10/2024 1:43 PM EDT [facility] Total Bilirubin 0.8 0.0 - 1.4 mg/dL LAB CHEMISTRY METHOD 08/10/2024 1:43 PM EDT [facility] Blood Venous blood specimen / Unknown Venipuncture / Unknown 08/10/2024 11:50 AM EDT 08/10/2024 12:25 PM EDT Caleb Fuentes MD LAB BLOOD ORDERABLES Final Resul t [facility] [address] [place] [address], [place] [phone] * Colonoscopy (02/09/2021) Colonoscopy Normal, Abstracted Anatomical Region Laterality Modality Other Historical Provider HEALTH MAINTENANCE Final Result from Last 3 Months or Most Recently Relevant to Health Maintenance Insurance MEDICAID - [place] [employer] MEDICARE Care Teams Men'S Leather Dress Belt Maker Relationship Specialty Start Date End Date Caleb Fuentes MD [address] [place] [phone] PCP - General Internal Medicine 04/27/18
[2024-12-01 14:38] LABS: Anion Gap 9 (12-20); Blood Urea Nitrogen 16 mg/dL (9-16); Calcium 9.3 mg/dL (8.4-10.2); Carbon Dioxide 29 mmol/L (22-29); Chloride 107 mmol/L (96-108); Estimated Glomerular Filt Rate > 60; Potassium 4.1 mmol/L (3.3-5.1); Sodium 141 mmol/L (135-145); Uric Acid 7.2 mg/dL (3.4-7.0)
== END 2024-12-01 12:05 | disposition home or self-care (01) ==
LOC: HO.HKASLDS 12:04
PROVIDERS: Visit Provider Internal Medicine Nephrology
DX: N20.0 Calculus of kidney (principal)
CPT/HCPCS: 36415; 80051; 82310; 82565; 84520; 84550

== ENCOUNTER 2024-12-30 12:56 | Outpatient (REF) | payer MEDICARE, SELFPAY ==
--- NOTE | ~2024-12-30 | US_ITS ---
CLINICAL HISTORY: N20.0 - Calculus of kidney US Renal Comparison: US/SR - US KIDNEY BILATERAL - 02/26/24 14:45 EDT Findings: Right kidney normal size and echotexture, 11.2 cm length. Small echogenic foci without posterior shadowing. Left kidney normal size and echotexture, 12 cm length. Small echogenic foci without posterior shadowing. Mild dilation of the left renal pelvis. Normal color Doppler. IMPRESSION: Small echogenic foci of the bilateral kidneys. Small kidney stones can not be excluded. Mild left pelviectasis. This document has been electronically signed by: Ila Kerns MD on 12/30/2024 16:56:19
--- OUTSIDE RECORDS SUMMARY | 2024-12-30 13:44 | XMS_ITS | Clinical Summary ---
Author Organization [facility] Address [address] [facility] [address] [place] [address] Phone Care Team Providers Care Plating Equipment Tender Name Role Phone Caleb Fuentes MD Primary Care Provider Allergies No known active allergies Medications albuterol HFA (PROVENTIL HFA;VENTOLIN HFA) 108 (90 Base) MCG/ACT inhaler Inhale 2 puffs 2 Active celecoxib (CeleBREX) 200 MG capsule Take 1 capsule by mouth 1 Active levothyroxine (SYNTHROID, LEVOTHROID) 50 MCG tablet Take 1 tablet by mouth 1 (one) time each day 2 Active propafenone SR (RYTHMOL SR) 225 MG 12 hr capsule Take 1 capsule by mouth in the morning and 1 capsule in the evening. 2 Active rosuvastatin (CRESTOR) 10 MG tablet Take 10 mg by mouth 1 (one) time each day 2 Active terbinafine (LamISIL) 250 MG tablet Take 1 tablet by mouth 1 (one) time each day 2 Active dilTIAZem CD (CARDIZEM CD) 240 MG 24 hr capsule Take 1 capsule by mouth 1 (one) time each day 3 Active clopidogrel (PLAVIX) 75 MG tablet Take 75 mg by mouth 1 (one) time each day 4 Active aspirin (ST ABILIO) 81 MG EC tablet Take 81 mg by mouth 1 (one) time each day Active hydroCHLOROthi azide 12.5 MG tablet TAKE 1 TABLET BY MOUTH 1 TIME EACH DAY. 90 tablet 3 5 Active hydroCHLOROthi azide 12.5 MG tablet Take 1 tablet (12.5 mg total) by mouth 1 (one) time each day 90 tablet 3 4 12/04/19 25 Discontinued Active Problems Problem Noted Date Diagnosed Date Aftercare following joint replacement surgery 04/18/2023 Body mass index (BMI) 33.0-33.9, adult 3 04/18/2023 Iron deficiency anemia 11/27/2022 Long-term current use of anticoagulant 3 04/18/2023 halfway current use of non-steroidal anti-infl ammatories 11/27/2022 04/18/2023 Obesity 11/27/2022 04/18/2023 Other fpc current drug therapy 11/27/2022 04/18/2023 Personal history [...] tunnel syndrome 06/10/201106/05 Venous insufficiency 04/04/2011 023 Encounters Date Type Department Care Team Description 12/03/2024 Refill [facility] [address] [address] Jama Mcintyre MD from Last 3 Months Immunizations Immunization Administration Dates Next Due Influenza, [...] Office Visit [facility] [address] [facility] [address] [place] [address] Sharon Breen ARNP [address] [phone] Health Maintenance Due Date Last Done Comments Colorectal Cancer Screening: Annual FOBT 2006 Colorectal Cancer Screening: Colonoscopy 2006 Colorectal Cancer Screening: Sigmoidoscopy 2006 Pneumococcal Vaccine: 50+ Years (2 of 2 - PCV) 05/23/2010 05/23/2009 Influenza Vaccine (#1) 2025 3, 03/27/2016 Pneumococcal Vaccine: Peds ( 0 to 5 Years) and At-Risk Patients (6 to 49 Years) Discontinued 05/23/2009 Hepatitis B Vaccine Aged Out No longe r eligible based on patient's age to complete this topic Insurance Aetna [facility] Adv PPO ([id number]) Aetna [facility] Adv PPO ([id number]) Care Teams Plating Equipment Tender Relationship Specialty Start Date End Date Caleb Fuentes MD [address] [place] [phone] PCP - General Internal Medicine 03/11/22
--- OUTSIDE RECORDS SUMMARY | 2024-12-30 13:44 | XMS_ITS ---
Author Name [facility] Organization Unknown Care Team Organization Name Specialty Phone Email Start Date End Da te [facility] ABILIO PERLA Primary Care 03/26/2022 01/05/20 24
--- OUTSIDE RECORDS SUMMARY | 2024-12-30 13:44 | XMS_ITS | Clinical Summary ---
Author Organization [address] [place] [address] [place] [phone] Phone Care Team Providers Care Rounder Hand Name Role Phone Caleb Fuentes MD Primary Care Provider Allergies No known active allergies Medications albuterol HFA (PROAIR HFA ; PROVENTIL HFA ; VENTOLIN HFA) 90 mcg/actuation inhaler Inhale 2 Puffs into the lungs every 6 hours as needed for Cough, Wheezing or Shortness of Breath for up to 30 days. 4 Active terbinafine (LamISIL) 250 mg tablet TAKE 1 TABLET BY MOUTH EVERY DAY 4 Active aspirin 81 mg EC tablet Take 1 Tablet by mouth. Active mometasone (ELOCON) 0.1 % cream Apply twice a day for 10 days in the scrotal area 4 Active hydroCHLOROthiazid e 12.5 mg tablet Take 1 Tablet by mouth daily. Active celecoxib (CeleBREX) 200 mg capsule TAKE 1 CAPSULE BY MOUTH TWICE A DAY 3 Active fluticasone propionate (FLONASE) 50 mcg/actuation nasal spray SPRAY 2 SPRAYS BY NASAL ROUTE EVERY DAY 3 Active medical supply, miscellaneous (MISCELLANEOUS MEDICAL SUPPLY MISC) Inhale into the lungs. apria Active levothyroxine (SYNTHROID, LEVOTHROID) 50 mcg tablet TAKE 1 TABLET BY MOUTH EVERY DAY 90 tablet 1 5 Active dilTIAZem CD (CARDIZEM CD) 240 mg 24 hr capsuleIndications :Paroxysmal atrial fibrillation (CMS/HCC V24, CMS/HCC V28) Take 1 capsule (240 mg total) by mouth 1 (one) time each day. 90 capsule 2 5 Active propafenone SR (RYTHMOL SR) 225 mg 12 hr capsuleIndications :Paroxysmal atrial fibrillation (CMS/HCC V24, CMS/HCC V28) Take 1 capsule (225 mg total) by mouth 2 (two) times a day. 180 capsule 2 5 Active rosuvastatin (CRESTOR) 10 mg tablet TAKE 1 TABLET BY MOUTH 1 TIME EACH DAY. 90 tablet 3 5 Active Active Problems Problem Noted Date Diagnosed [...] Description 10/14/2024 10:40 AM EDT Office Visit [facility] - [address] [place] [address] Jana Botello PA Atrial fibrillation, unspecified type (CMS/HCC V24, CMS/HCC V28) (Primary Dx); Paroxysmal atrial fibrillation (CMS/HCC V24, CMS/HCC V28); Essential hypertension; ARGENIS (obstructive sleep apnea) [...] Comments Anemia 03/2017 Asthma 03/2017 Atrial fibrillation (CMS/HCC V24, CMS/HCC V28) 03/2017 Eliquis. s/p cardiac ablatio n [...] AM EDT Office Visit [facility] - [facility] [address] [phone] Caleb Fuentes MD [address] [address] 02/10/2025 1:00 PM EDT Office Visit Pulmonolgy - [facility] [address] [phone] Vesta Tobin MD [address] [address] 04/21/2025 10:40 AM EST Office Visit [facility] - [facility] [address] [facility] [address] [place] [address] Jana Botello PA [address] [place] [address] Health Maintenance Due Date Last Done Comments Zoster Vaccines (1 of 2) 2007 RSV Immunization Adult Patients (1 - Risk 60-74 years 1-dose series) 2017 Hepatitis C Screening 04/26/2022 Social Influencers of Health Screening 04/26/2022 Falls Risk Assessment 09/10/2023 09/09/2022 Medicare Annual Wellness Visit 09/10/2023 09/09/2022 COVID-19 Vaccine ( season) 2024 05/31/2021, 08/09/2020, 07/12/2020 Depression Screening 05/19/2024 DTaP,Tdap,and Td Vaccines (2 - Td or [...] GEMUSE QTc 401 ms GEMUSE P Wave [place] 51 degrees GEMUSE R [place] -2 degrees GEMUSE T [place] 25 degrees GEMUSE ECG Interpretation Sinus bradycardia [...] LAB CHEMISTRY METHOD 08/10/2024 1:43 PM EDT [facility] Triglycerides 100 0 - 150 mg/dL LAB CHEMISTRY METHOD 08/10/2024 1:43 PM EDT [facility] HDL 60 >=40 mg/dL LAB CHEMISTRY METHOD 08/10/2024 1:43 PM EDT [facility] LDL Calculated 86 0 - 100 mg/dL LAB CHEMISTRY METHOD 08/10/2024 1:43 PM EDT [facility] VLDL Cholesterol Hunter 20 mg/dL LAB CHEMISTRY METHOD 08/10/2024 1:43 PM EDT [facility] Non HDL Chol. (LDL+VLDL) 106 <145 mg/dL LAB CHEMISTRY METHOD 08/10/2024 1:43 PM EDT [facility] Chol/HDL Ratio 2.8 0.0 - 4.4 LAB CHEMISTRY METHOD 08/10/2024 1:43 PM EDT [facility] Blood Venous blood specimen / Unknown Venipuncture / Unknown 08/10/2024 11:50 AM EDT 08/10/2024 12:25 PM EDT us Caleb Fuentes MD LAB BLOOD ORDERABLES Final Resul t [facility] [address] [place] [address], [place] [phone] * (ABNORMAL) Comprehensive metabolic panel (08/10/2024 11:50 AM EDT) Sodium 139 133 - 145 mmol/L LAB CHEMISTRY METHOD 08/10/2024 1:43 PM EDT [facility] Potassium 4.0 3.5 - 5.5 mmol/L LAB CHEMISTRY METHOD 08/10/2024 1:43 PM EDT [facility] Chloride 105 96 - 110 mmol/L LAB CHEMISTRY METHOD 08/10/2024 1:43 PM EDT [facility] CO2 29 21 - 32 mmol/L LAB CHEMISTRY METHOD 08/10/2024 1:43 PM [facility] Anion Gap 5 3 - 11 LAB CHEMISTRY METHOD 08/10/2024 1:43 PM [facility] Glucose 104(H) 70 - 100 mg/dL LAB CHEMISTRY METHOD 08/10/2024 1:43 PM [facility] BUN 20 5 - 25 mg/dL LAB CHEMISTRY METHOD 08/10/2024 1:43 PM [facility] Creatinine 0.93 0.70 - 1.30 mg/dL LAB CHEMISTRY METHOD 08/10/2024 1:43 PM [facility] eGFR 90 >=60 mL/min/1. 73m2 LAB CHEMISTRY METHOD 08/10/2024 1:43 PM [facility] Comment:Calculation based on the Chronic Kidney Disease Epidemiology Collaboration (CKD-EPI) equation refit without adjustment for race. BUN/Creatinine Ratio 21.5 LAB CHEMISTRY METHOD 08/10/2024 1:43 PM [facility] Calcium 9.4 8.5 - 10.5 mg/dL LAB CHEMISTRY METHOD 08/10/2024 1:43 PM [facility] AST (SGOT) 23 10 - 42 unit/L LAB CHEMISTRY METHOD 08/10/2024 1:43 PM [facility] ALT (SGPT) 27 10 - 60 unit/L LAB CHEMISTRY METHOD 08/10/2024 1:43 PM [facility] Alkaline Phosphatase 81 42 - 121 unit/L LAB CHEMISTRY METHOD 08/10/2024 1:43 PM [facility] Total Protein 7.4 6.0 - 8.0 g/dL LAB CHEMISTRY METHOD 08/10/2024 1:43 PM [facility] Albumin 3.8 3.2 - 5.0 g/dL LAB CHEMISTRY METHOD 08/10/2024 1:43 PM [facility] Total Bilirubin 0.8 0.0 - 1.4 mg/dL LAB CHEMISTRY METHOD 08/10/2024 1:43 PM EDT [facility] Blood Venous blood specimen / Unknown Venipuncture / Unknown 08/10/2024 11:50 AM EDT 08/10/2024 12:25 PM EDT Caleb Fuentes MD LAB BLOOD ORDERABLES Final Resul t [facility] [address] [place] [address], * Colonoscopy (02/09/2021) Colonoscopy Normal, Abstracted Anatomical Region Laterality Modality Other Historical Provider HEALTH MAINTENANCE Final Result from Last 3 Months or Most Recently Relevant to Health Maintenance Insurance MEDICAID - [place] [employer] MEDICARE Care Teams Rounder Hand Relationship Specialty Start Date End Date Caleb Fuentes MD [address] [address] PCP - General Internal Medicine 04/27/18
--- OUTSIDE RECORDS SUMMARY | 2024-12-30 13:44 | XMS_ITS | Clinical Summary ---
Author Organization [facility] Address [address] [place] [address] Care Team Providers Care Manager Room Name Role Phone Caleb Fuentes MD Primary [...] age to complete this topic Care Teams Manager Room Relationship Specialty Start Date End Date Caleb Fuentes MD PCP - General Internal Medicine 03/04/19
== END 2024-12-30 12:57 | disposition home or self-care (01) ==
LOC: HO.HMGCX 12:56
PROVIDERS: PCP Internal Medicine; Visit Provider Internal Medicine Nephrology
DX: N20.0 Calculus of kidney (principal)
CPT/HCPCS: 76775

== ENCOUNTER → 2024-12-30 13:07 | Outpatient (BNV) | payer MEDICARE, SELFPAY | PROVIDERS: PCP Internal Medicine; Visit Provider Nuclear Medicine | DX: N20.0 Calculus of kidney (principal); R93.421 Abnormal radiologic findings on diagnostic imaging of right kidney; R93.422 Abnormal radiologic findings on diagnostic imaging of left kidney | CPT/HCPCS: 76775 ==